=== PATIENT | male | born 1975 | race Hispanic/Latino ===

== ENCOUNTER 2021-12-15 20:52 | Emergency (ER) | payer OTHER ==
--- NOTE | 2021-12-16 01:56 | EDPHYS ---
Physician Documentation [facility] Name: Fabiano Omalley Age: 46 yrs Sex: Male : 1975 Arrival Date: 12/15/2021 Time: 21:04 Bed 14 Private MD: ED Physician Juan Qureshi HPI: 12/15 23:49 This 46 yrs old Male presents to ER via Wheelchair with complaints of mh7 Productive Cough, COVID+. 23:49 The patient or guardian reports cough, that is intermittent, described as mild, with mh7 productive sputum, that is white. Onset: The symptoms/episode began/occurred 7 day(s) ago. 23:49 Severity of symptoms: At their worst the symptoms were moderate, 443 day(s) ago, in the [facility] emergency department the symptoms have improved, moderately. 23:49 Modifying factors: The symptoms are alleviated by nothing, the symptoms are aggravated mh7 by nothing. Associated signs and symptoms: Pertinent positives: chest pain, with cough, Pertinent negatives: diarrhea, ear ache, fever, nausea, rhinorrhea, sore throat, vomiting. Mother states that patient tested positive for COVID 3 days ago. She is also tested positive for COVID.. 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 - Social history:: Smoking status: Patient denies any tobacco usage or history of. Patient/guardian denies using alcohol. ROS: 23:49 Constitutional: Negative for fever, chills, and weight loss, Eyes: Negative for injury, mh7 pain, redness, and discharge, ENT: Negative for injury, pain, and discharge, Neck: Negative for injury, pain, and swelling, Abdomen/GI: Negative for abdominal pain, nausea, vomiting, diarrhea, and constipation, Back: Negative for injury and pain, : Negative for injury, bleeding, discharge, and swelling, MS/Extremity: Negative for injury and deformity, Skin: Negative for injury, rash, and discoloration, Neuro: Negative for headache, weakness, numbness, tingling, and seizure, Psych: Negative for depression, anxiety, suicide ideation, homicidal ideation, and hallucinations, Allergy/Immunology: Negative for hives, rash, and allergies, Endocrine: Negative for neck swelling, polydipsia, polyuria, polyphagia, and marked weight changes, Hematologic/Lymphatic: Negative for swollen nodes, abnormal bleeding, and unusual bruising. Exam: 23:49 Constitutional: This is a well developed, well nourished patient who is awake, alert, mh7 and in no acute distress. Head/Face: Normocephalic, atraumatic. Eyes: Pupils equal round and reactive to light, extra-ocular motions intact. Lids and lashes normal. Conjunctiva and sclera are non-icteric and not injected. Cornea within normal limits. Periorbital areas with no swelling, redness, or edema. Neck: Trachea midline, no thyromegaly or masses palpated, and no cervical lymphadenopathy. Supple, full range of motion without nuchal rigidity, or vertebral point tenderness. No Meningismus. Chest/axilla: Normal chest wall appearance and motion. Nontender with no deformity. No lesions are appreciated. Cardiovascular: Regular rate and rhythm with a normal S1 and S2. No gallops, murmurs, or rubs. Normal PMI, no JVD. No pulse deficits. Respiratory: Lungs have equal breath sounds bilaterally, clear to auscultation and percussion. No rales, rhonchi or wheezes noted. No increased work of breathing, no retractions or nasal flaring. Abdomen/GI: Soft, non-tender, with normal bowel sounds. No distension or tympany. No guarding or rebound. No evidence of tenderness throughout. Back: No spinal tenderness. No costovertebral tenderness. Full range of motion. Skin: Warm, dry with normal turgor. Normal color with no rashes, no lesions, and no evidence of cellulitis. 23:49 Musculoskeletal/extremity: Exam is negative for acute changes, Wheelchair-bound due to cerebral palsy. 23:49 Neuro: Exam negative for acute changes. Vital Signs: 21:24 Pulse 83; Resp 18; Temp 98.8(TE); Pulse Ox 95% on R/A; Weight 54.43 kg; Height 5 ft. 6 ld1 in. (167.64 cm); Pain 0/10; 23:35 BP 98 / 68; Pulse 86; Resp 18; Pulse Ox 98% on R/A; mk 12/16 00:35 BP 117 / 81; Pulse 81; Resp 18; Pulse Ox 98% on R/A; mk 02:00 BP 117 / 82; Pulse 85; Resp 18; Temp 98.4; Pulse Ox 99% on R/A; mk 12/15 21:24 Body Mass Index 19.37 (54.43 kg, 167.64 cm) ld1 Cheryl Coma Score: 12/15 23:35 Eye Response: spontaneous(4). Verbal Response: oriented(5). Motor Response: obeys mk commands(6). Total: 15. 12/16 00:35 Eye Response: spontaneous(4). Verbal Response: oriented(5). Motor Response: obeys mk commands(6). Total: 15. 02:00 Eye Response: spontaneous(4). Verbal Response: oriented(5). Motor Response: obeys mk commands(6). Total: 15. MDM: 01:54 Differential Diagnosis: Bronchitis Asthma Exacerbation Viral Syndrome Pneumonia. Data [facility] reviewed: vital signs, nurses notes, radiologic studies, plain films. Data interpreted: Pulse oximetry: on room air is 98 %. Interpretation: normal. Counseling: I had a detailed discussion with the patient and/or guardian regarding: the historical points, exam findings, and any diagnostic results supporting the discharge/admit diagnosis, radiology results, the need for outpatient follow up, to return to the emergency department if symptoms worsen or persist or if there are any questions or concerns that arise at home. Response to treatment: the patient's symptoms have markedly improved after treatment. 01:56 Patient medically screened. [facility] 12/15 23:49 Order name: Chest Single View XRAY 7 Administered Medications: No medications were administered Disposition Summary: 12/16/21 01:56 Discharge Ordered Location: Home [facility] Problem: an ongoing problem [facility] Symptoms: have improved [facility] Condition: Stable [facility] Diagnosis - Coronavirus infection, unspecified [facility] Followup: [facility] - With: Private Physician - When: 1 - 2 days - Reason: Worsening of condition, Recheck today's complaints, Continuance of care, Re-evaluation by your physician Discharge Instructions: - Discharge Summary Sheet [facility] - COVID-19 [facility] - COVID-19 Frequently Asked Questions [facility] - 10 Things You Can Do to Manage Your COVID-19 Symptoms at Home - [place] [address] - COVID-19: Quarantine vs. Isolation - [place] [address] Forms: - Medication Reconciliation Form [facility] - Thank You Letter [facility] - Antibiotic Education [facility] - Prescription Opioid Use [facility] Prescriptions: - albuterol sulfate 90 mcg/actuation Inhalation HFA aerosol inhaler - inhale 1 puff by INHALATION route every 4-6 hours As needed; 1 Inhaler; 7 Refills: 0, Product Selection Permitted - Tessalon Perles 100 mg Oral Capsule - take 1 capsule by ORAL route every 8 hours As needed; 15 capsule; Refills: 0, 7 Product Selection Permitted Signatures: Dispatcher [employer] Juan Tucker MD MD [facility] Mayra Mathew RN RN ld1 Corrections: (The following items were deleted from the chart) 12/15 21:28 21:25 Home Meds: Miralax 17 gram/dose Oral powd once daily; 1 ld1 21:28 21:25 Home Meds: Vitamin D Oral; 1 ld1 21:28 21:25 PMHx: Mental challenged; [facility] ld1 23:53 23:49 Severity of symptoms: At their worst the symptoms were moderate, 3 day(s) ago, in [facility] the emergency department the symptoms [facility]
--- NOTE | 2021-12-16 01:56 | ER ---
Nurse's Notes [facility] Name: Fabiano Omalley Age: 46 yrs Sex: Male : 1975 Arrival Date: 12/15/2021 Time: 21:04 Bed 14 Private MD: Diagnosis: Coronavirus infection, unspecified Presentation: 12/15 21:24 Chief complaint: Patient states: COVID + - phlegm is causing choking. Coughing is ld1 causing chest to hurt. Coronavirus screen: Client presents with at least one sign or symptom that may indicate coronavirus-19. Standard/surgical mask placed on the client. Ebola Screen: No symptoms or risks identified at this time. Initial Sepsis Screen: Does the patient meet any 2 criteria? No. Patient's initial sepsis screen is negative. Does the patient have a suspected source of infection? No. Patient's initial sepsis screen is negative. Risk Assessment: Do you want to hurt yourself or someone else? Patient reports no desire to harm self or others. Onset of symptoms was December 15, 2021. 21:24 Method Of Arrival: Wheelchair ld1 21:24 Acuity: SEAN 4 ld1 Triage Assessment: 21:25 General: Appears in no apparent distress. comfortable, Behavior is calm, cooperative, ld1 appropriate for age. Pain: Denies pain. EENT: No signs and/or symptoms were reported regarding the EENT system. Neuro: Level of Consciousness is awake, alert, obeys commands, Oriented to person, place, time, situation, Appropriate for age. Respiratory: Reports cough that is Airway is patent Respiratory effort is even, unlabored, Onset: The symptoms/episode began/occurred gradually, the patient has mild shortness of breath. 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 - Social history:: Smoking status: Patient denies any tobacco usage or history of. Patient/guardian denies using alcohol. Screenin/15 02:34 Abuse screen: Denies threats or abuse. Nutritional screening: No deficits noted. mk Nutritional screening: No deficits noted. Nutritional screening: On bland/soft diet. Tuberculosis screening: No symptoms or risk factors identified. Fall Risk No fall in past 12 months (0 pts). No secondary diagnosis (0 pts). IV access (20 points). Ambulatory Aid- Crutches/Cane/Walker (15 pts). Gait- Impaired (20 pts.). Mental Status- Oriented to own ability (0 pts). Total Linn Fall Scale indicates High Risk Score (45 or more points). Fall prevention measures have been instituted. Side Rails Up X 2 Placed Close to Nursing Station Family Present and informed to notify staff if the need to leave the bedside. Assessment: 12/15 23:35 General: Appears slender, well groomed, Behavior is calm, cooperative. Pain: Denies mk pain. Neuro: Level of Consciousness is awake, alert, obeys commands, Oriented to person, place, time, situation, slight difficulty assessing d/t slurred speech but pt communicating with full understanding. Special Collections Librarian are weak bilaterally Moves all extremities. spasms of arms and legs . Speech is slurred, Facial symmetry appears normal, Pupils are PERRLA, Pupil Size: 3 bilaterally Intact. Cardiovascular: Heart tones S1 S2 Rhythm is sinus rhythm. Respiratory: Airway is patent Trachea midline Respiratory effort is even, unlabored, Respiratory pattern is regular, symmetrical, Breath sounds are clear Parent/caregiver reports the patient having shortness of breath since dx with covid 7-8 days [employer] cough that is non-productive, hacking, persistent. GI: Abdomen is flat, non-distended, Bowel sounds present X 4 quads. Abd is soft and non tender X 4 quads. : No signs and/or symptoms were reported regarding the genitourinary system. Derm: Skin is intact, is healthy with good turgor, Skin is dry, Skin temperature is warm. Musculoskeletal: Capillary refill < 3 seconds, fingers. toes. Range of motion: limited in all extremities. 12/16 00:30 Reassessment: No changes from previously documented assessment. Patient and/or family mk updated on plan of care and expected duration. Pain level reassessed. Patient is alert, oriented x 3, equal unlabored respirations, skin warm/dry/pink. 01:30 Reassessment: No changes from previously documented assessment. Patient and/or family mk updated on plan of care and expected duration. Pain level reassessed. Patient is alert, oriented x 3, equal unlabored respirations, skin warm/dry/pink. 02:15 Reassessment: No changes from previously documented assessment. Patient and/or family mk updated on plan of care and expected duration. Pain level reassessed. Patient is alert, oriented x 3, equal unlabored respirations, skin warm/dry/pink. Vital Signs: 12/15 21:24 Pulse 83; Resp 18; Temp 98.8(TE); Pulse Ox 95% on R/A; Weight 54.43 kg; Height 5 ft. 6 ld1 in. (167.64 cm); Pain 0/10; 23:35 BP 98 / 68; Pulse 86; Resp 18; Pulse Ox 98% on R/A; mk 12/16 00:35 BP 117 / 81; Pulse 81; Resp 18; Pulse Ox 98% on R/A; mk 02:00 BP 117 / 82; Pulse 85; Resp 18; Temp 98.4; Pulse Ox 99% on R/A; mk 12/15 21:24 Body Mass Index 19.37 (54.43 kg, 167.64 cm) ld1 Cheryl Coma Score: 12/15 23:35 Eye Response: spontaneous(4). Verbal Response: oriented(5). Motor Response: obeys commands(6). Total: 15. 12/16 00:35 Eye Response: spontaneous(4). Verbal Response: oriented(5). Motor Response: obeys mk commands(6). Total: 15. 02:00 Eye Response: spontaneous(4). Verbal Response: oriented(5). Motor Response: obeys mk commands(6). Total: 15. ED Course: 12/15 21:04 Patient arrived in ED. wm 21:25 Triage completed. ld1 21:25 Arm band placed on right wrist. ld1 23:35 Patient has correct armband on for positive identification. Allergy band placed. Fall mk risk band placed. Call light in reach. Side rails up X 1. remains in customized wheelcahir. Pulse ox on. NIBP on. 23:38 Juan uQreshi MD is Attending Physician. [facility] 23:48 Rody Lee, RN is Primary Nurse. 12/16 00:37 Chest Single View XRAY In Process Unspecified. EDMS 02:34 No provider procedures requiring assistance completed. Patient did not have IV access during this emergency room visit. Administered Medications: No medications were administered Outcome: 01:56 Discharge ordered by . [facility] 02:28 Patient left the ED. 02:34 Discharged to home via wheelchair, with family. 02:34 Condition: stable 02:34 Discharge instructions given to patient, family. Signatures: Dispatcher [employer] EDMS Juan Qureshi MD MD 7 Mayra Mathew RN RN [facility] Leena Banks Rody Lee RN RN joe Corrections: (The following items were deleted from the chart) 12/15 21:28 21:25 Home Meds: Miralax 17 gram/dose Oral powd once daily; [facility] 21 21:25 Home Meds: Vitamin D Oral; [facility] 21:25 PMHx: Mental challenged; [place] [address] 12/16 00:23 12/15 23:35 GCS: 15, [facility] 12/16 02:28 12/15 23:35 GCS: 12, [facility] 12/16 02: 00:35 GCS: 12, [facility]
[2021-12-16 02:39] VITALS: BP 117/82; TEMP 98.4; O2SAT 99
--- NOTE | 2021-12-17 22:34 | RAD REPORT ---
EXAM DESCRIPTION: RAD - Chest Single View - 12/16/2021 12:37 am CLINICAL HISTORY: Cough COMPARISON: None. TECHNIQUE: Chest 1 View AP FINDINGS: Trachea midline. Heart size and pulmonary vessels within normal limits. Minimal stranding right lower lung field opacity. No consolidation, mass, or significant pulmonary edema. No significant pleural effusion or pneumothorax. Bones unremarkable. IMPRESSION: Minimal right lower lung field subsegmental atelectasis or scar/fibrosis. Electronically signed by: Eber Mann MD 12/16/2021 12:50 AM LANDING SIGNAL OFFICER Due to temporary technical issues with the PACS/Fluency reporting system, reports are being signed by the in house radiologists without review as a courtesy to insure prompt reporting. The interpreting radiologist is fully responsible for the content of the report.
== END 2021-12-16 02:28 | disposition home or self-care (01) ==
LOC: ER 20:52
DX: U07.1 COVID-19 (principal); N18.9 Chronic kidney disease, unspecified; G80.9 Cerebral palsy, unspecified
CPT/HCPCS: 71045; 99284

== ENCOUNTER 2024-05-20 09:57 | Emergency (ER) | payer OTHER ==
--- NOTE | 2024-05-20 11:09 | RAD REPORT ---
EXAM DESCRIPTION: RAD - Chest Single View - 05/20/2024 11:01 am CLINICAL HISTORY: COUGH Chest pain. COMPARISON: <Comparisons> FINDINGS: Portable technique limits examination quality. The lungs are grossly clear. The heart is upper limit normal in size. No displaced fractures. IMPRESSION: No acute intrathoracic process suspected.
[2024-05-20 12:10] LABS: Absolute Eosinophils 0.2 K/uL (0-0.5); Absolute Lymphocytes (CBC) 0.5 K/uL (0.7-4.9); Absolute Monocytes 0.7 K/uL (0.1-1.3); Absolute Neutrophil 5.7 K/uL (1.8-8.0); Basophils % 0.2 % (0-1.3); Eosinophils % 2.6 % (0-4.4); Hemoglobin 13.7 g/dL (13.6-17.9); Lymphocytes % 7.1 % (15.3-44.8); MCH 28.8 pg (27.0-35.0); MCHC 32.7 g/dL (32.0-36.0); MPV 8.5 fL (7.6-11.3); Monocytes % 10.1 % (3.3-12.3); Platelets 209 thou/uL (152-406); RBC Red Blood Cell Count 4.77 M/uL (4.33-5.43); Red Cell Distribution Width 14.1 % (12.1-15.2)
[2024-05-20 12:29] LABS: Albumin 3.4 g/dL (3.4-5.0); Albumin/Globulin Ratio 0.9 (1.1-1.8); Anion Gap 6.1 mEq/L (5.0-15.0); Bilirubin Direct 0.2 mg/dL (0-0.2); Bilirubin Indirect, Calculated 0.5 mg/dL (0.2-0.8); Bilirubin Total 0.7 mg/dL (0.2-1.0); Globulin 3.7 g/dL (2.3-3.5); Potassium 4.1 mEq/L (3.5-5.1); Protein, Total 7.1 g/dL (6.4-8.2)
[2024-05-20] MEDS ORDERED: CEFTRIAXONE 1000 MG/VIAL ONE (13:16)
[2024-05-20] MEDS ORDERED: NA CHLORIDE 0.9% 100 ML ONE (13:17)
[2024-05-20 14:52] VITALS: BP 99/68; O2SAT 97
--- NOTE | 2024-05-20 15:08 | ER ---
Nurse's Notes [facility] Name: Fabiano Omalley Age: 48 yrs Sex: Male : 1975 Arrival Date: 05/20/2024 Time: 09:57 Bed 20 Private MD: Diagnosis: Clinical pneumonia Presentation: 05/20 10:23 Chief complaint: Parent and/or Guardian states: cough and congestion that began ss Saturday after returning from [place]. Was seen at urgent care on Saturday and tested negative for COVID, FLU and strep. Prescribed an antibiotic, but Aunt is concerned because he is coughing up phlegm. Coronavirus screen: Client denies travel out of the [place] in the last 14 days. Ebola Screen: Patient denies exposure to infectious person. Patient denies travel to an Ebola-affected area in the 21 days before illness onset. Initial Sepsis Screen: Does the patient meet any 2 criteria? No. Patient's initial sepsis screen is negative. Does the patient have a suspected source of infection? No. Patient's initial sepsis screen is negative. Risk Assessment: Do you want to hurt yourself or someone else? Patient reports no desire to harm self or others. Onset of symptoms was May 26, 2024. 10:23 Method Of Arrival: Ambulatory ss 10:23 Acuity: SEAN 3 ss Triage Assessment: 10:26 Pain: Denies pain. Neuro: Level of Consciousness is awake, alert, obeys commands. ss Respiratory: Airway is patent Respiratory effort is even, unlabored, Respiratory pattern is regular, symmetrical. 10:30 Respiratory: Reports shortness of breath cough that is Onset: The symptoms/episode bp began/occurred at an unknown time. the patient has mild shortness of breath. 10:30 General: Appears in no apparent distress. Behavior is AT BASELINE. EENT: No deficits bp noted. Cardiovascular: No deficits noted. GI: No signs and/or symptoms were reported involving the gastrointestinal system. : No signs and/or symptoms were reported regarding the genitourinary system. Historical: - Allergies: 10:26 No Known Allergies; ss - PMHx: 10:26 Cerebral Palsy; Chrones; kidney disease; ss - PSHx: 10:26 intestinal Surgery; ss - Immunization history:: Adult Immunizations up to date. - Infectious Disease History:: Denies. - Social history:: Smoking status: Patient denies any tobacco usage or history of. Screenin:01 [facility] ED Fall Risk Assessment (Adult) History of falling in the last 3 months, bp including since admission No falls in past 3 months (0 pts) Confusion or Disorientation Yes (5 pts) Intoxicated or Sedated No (0 pts) Impaired Gait Yes (1 pt) Mobility Assist Device Used No (0 pt) Altered Elimination No (0 pt) Score/Fall Risk Level 3 or more points = High Risk. Abuse screen: Denies threats or abuse. Denies injuries from another. Nutritional screening: No deficits noted. Tuberculosis screening: No symptoms or risk factors identified. Assessment: 10:30 General: Appears in no apparent distress. Behavior is cooperative, appropriate for age, bp anxious. Pain: Denies pain. Neuro: No deficits noted. Cardiovascular: Rhythm is sinus rhythm. Respiratory: Airway is patent Breath sounds are clear bilaterally. 13:00 Reassessment: No changes from previously documented assessment. bp 13:41 Reassessment: DC ON HOLD FOR AMBULANCE TRANSPORT. bp Vital Signs: 10:23 BP 111 / 73; Pulse 92; Resp 17; Pulse Ox 94% on R/A; Weight 49.9 kg; ss 13:00 BP 99 / 72; Pulse 93; Resp 20; Pulse Ox 94% ; bp 13:51 BP 99 / 68; Pulse 98; Resp 18; Pulse Ox 97% ; bp ED Course: 10:08 Patient arrived in ED. bd 10:08 Clotilde Butler MD is Attending Physician. sp3 10:26 Triage completed. ss 10:26 Arm band placed on right wrist. ss 11:02 XRAY Chest (1 view) In Process Unspecified. EDMS 11:20 Jay Yates, TRYA is Primary Nurse. bp 12:01 Patient has correct armband on for positive identification. bp 12:01 Inserted saline lock: 22 gauge in right antecubital area, using aseptic technique. bp Blood collected. 13:50 Provided Education on: N/A. bp 13:50 No provider procedures requiring assistance completed. IV discontinued, intact, bp bleeding controlled, No redness/swelling at site. Pressure dressing applied. Administered Medications: 13:15 Drug: Rocephin IV 1 grams IV at calculated rate once; Given slow IV push per pharmacy bp instructions Route: IV; Rate: calculated rate; Site: right antecubital; 13:40 Follow up: IV Status: Completed infusion; IV Intake: 100ml bp Medication: 10:30 VIS not applicable for this client. bp Intake: 13:40 IV: 100ml; Total: 100ml. bp Outcome: 13:03 Discharge ordered by MD. [email or web address] 13:50 Discharged to home via ambulance, with family, bp 13:50 Condition: stable 13:50 Discharge instructions given to family, Instructed on discharge instructions, follow up and referral plans. medication usage, Demonstrated understanding of instructions, follow-up care, medications, Prescriptions given X 1, 14:14 Patient left the ED. bp Signatures: Dispatcher [employer] EDMS Stephanie Read Shelby, RN RN Jay Barksdale RN RN Clotilde Morgan MD MD sp3
--- NOTE | 2024-05-20 15:08 | EDPHYS ---
Physician Documentation [facility] Name: Fabiano Omalley Age: 48 yrs Sex: Male : 1975 Arrival Date: 05/20/2024 Time: 09:57 Bed 20 Private MD: ED Physician Clotilde Butler HPI: 05/20 10:28 This 48 yrs old Male presents to ER via Ambulatory with complaints of sp3 Productive Cough, Nasal Congestion. 10:28 48-year-old male with history of cerebral palsy, Crohn's disease now presents to the ED sp3 with chief complaint cough and congestion for approximately 1 week. Patient's parent initially took patient to urgent care 2 days ago where they did swabs for influenza, COVID-19, strep which were all negative. 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 No fever over the last 24 hours. No other symptoms reported. ROS, history and physical somewhat limited secondary to cerebral palsy and most of the history is from the parent.. Historical: - Allergies: 10:26 No Known Allergies; ss - PMHx: 10:26 Cerebral Palsy; Chrones; kidney disease; ss - PSHx: 10:26 intestinal Surgery; ss - Immunization history:: Adult Immunizations up to date. - Infectious Disease History:: Denies. - Social history:: Smoking status: Patient denies any tobacco usage or history of. ROS: 10:29 Unable to obtain ROS due to Cerebral palsy, sp3 Exam: 10:29 Head/Face: Normocephalic, atraumatic. Eyes: Pupils equal round and reactive to light, sp3 extra-ocular motions intact. Lids and lashes normal. Conjunctiva and sclera are non-icteric and not injected. Cornea within normal limits. Periorbital areas with no swelling, redness, or edema. Chest/axilla: Normal chest wall appearance and motion. Nontender with no deformity. No lesions are appreciated. Cardiovascular: Regular rate and rhythm with a normal S1 and S2. No gallops, murmurs, or rubs. Normal PMI, no JVD. No pulse deficits. Respiratory: Lungs have equal breath sounds bilaterally, clear to auscultation and percussion. No rales, rhonchi or wheezes noted. No increased work of breathing, no retractions or nasal flaring. Abdomen/GI: Soft, non-tender, with normal bowel sounds. No distension or tympany. No guarding or rebound. No evidence of tenderness throughout. Vital Signs: 10:23 BP 111 / 73; Pulse 92; Resp 17; Pulse Ox 94% on R/A; Weight 49.9 kg; ss 13:00 BP 99 / 72; Pulse 93; Resp 20; Pulse Ox 94% ; bp 13:51 BP 99 / 68; Pulse 98; Resp 18; Pulse Ox 97% ; bp MDM: 10:08 Patient medically screened. sp3 10:29 Data reviewed: vital signs, nurses notes, EMS record, lab test result(s), radiologic sp3 studies. ED course: 48-year-old male with cough and congestion and distant fever. Differential diagnosis includes upper respiratory infection, viral illness, bronchitis, pneumonia, among others. I am not highly suspicious for sepsis or shock. Patient is in no acute distress and vital signs are normal. Patient is already on an antibiotic but we do not know which 1. Workup will include laboratory values, blood cultures and chest x-ray. Probable discharge home if workup is negative and we will place on Zithromax and Rocephin 1 dose in the ED and stop the other medication that patient is on unless it is Zithromax. The steps will be taken secondary to high risk of aspiration and patient's baseline deteriorated medical state. He is at high risk for infection.. 13:02 ED course: X-ray demonstrates no acute pneumonia radiologically however clinically we sp3 will go ahead and treat. Rocephin IV ordered and patient will be discharged on p.o. Zithromax.. 05/20 10:22 Order name: Basic Metabolic Panel; Complete Time: 12:43 sp3 05/20 10:22 Order name: CBC with Diff; Complete Time: 12:43 sp3 05/20 10:22 Order name: LFT's; Complete Time: 12:43 sp3 05/20 10:22 Order name: Blood Culture Adult (2) sp3 05/20 10:22 Order name: XRAY Chest (1 view); Complete Time: 11:27 sp3 05/20 10:22 Order name: IV Saline Lock; Complete Time: 12:01 sp3 05/20 10:22 Order name: Labs collected and sent; Complete Time: 12: sp3 05/20 10:22 Order name: O2 Sat Monitoring; Complete Time: 12:01 sp3 Administered Medications: 13:15 Drug: Rocephin IV 1 grams IV at calculated rate once; Given slow IV push per pharmacy bp instructions Route: IV; Rate: calculated rate; Site: right antecubital; 13:40 Follow up: IV Status: Completed infusion; IV Intake: 100ml bp Disposition Summary: 05/20/24 13:03 Discharge Ordered Notes: Location: Home sp3 Condition: Stable sp3 Diagnosis - Clinical pneumonia sp3 Followup: sp3 - With: Private Physician - When: Upon discharge from the Emergency Department - Reason: Continuance of care Discharge Instructions: - Discharge Summary Sheet sp3 - Community-Acquired Pneumonia, Adult sp3 Forms: - Medication Reconciliation Form sp3 - Antibiotic Education sp3 - Prescription Opioid Use sp3 - Patient Portal Instructions sp3 - Leadership Thank You Letter sp3 Prescriptions: - Zithromax Z-Pal 250 mg Oral Tablet - take 1 tablet ORAL route as directed for 5 days Day 1 - take two (2) tablets sp3 one time. Day 2, 3, 4 , 5 take one (1) tablet once daily.; 6 tablet; Refills: 0, Product Selection Permitted Signatures: Dispatcher [employer] mAy Joseph, RN Jay Raygoza RN RN Clotilde Morgan MD MD sp3 Corrections: (The following items were deleted from the chart) 10:23 10:23 Chest Single View+[email or web address] ordered. EDMS EDMS
== END 2024-05-20 14:14 | disposition home or self-care (01) ==
LOC: ER 09:57
DX: J18.9 Pneumonia, unspecified organism (principal)
CPT/HCPCS: 87040 ×2; 85025; 80048; 36415; 80076; 71045; J0696

== ENCOUNTER 2024-05-24 01:21 | Emergency (ER) | payer OTHER ==
[2024-05-24] MEDS ORDERED: GUAIFENESIN/DM 5 ML UCUP ONE (02:33)
[2024-05-24] MEDS ORDERED: ONDANSETRON 4 MG/2 ML VIAL ONE (02:33)
[2024-05-24] MEDS ORDERED: NA CHLORIDE 0.9% 1,000 ML ONE (02:34)
[2024-05-24 02:46] LABS: Absolute Basophils 0.1 K/uL (0-0.5); Absolute Eosinophils 0.3 K/uL (0-0.5); Absolute Lymphocytes (CBC) 0.6 K/uL (0.7-4.9); Absolute Monocytes 0.7 K/uL (0.1-1.3); Absolute Neutrophil 6.5 K/uL (1.8-8.0); Basophils % 0.7 % (0-1.3); Eosinophils % 3.1 % (0-4.4); Hematocrit 39.7 % (39.6-49.0); Hemoglobin 13.3 g/dL (13.6-17.9); Lymphocytes % 7.9 % (15.3-44.8); MCH 29.1 pg (27.0-35.0); MCHC 33.6 g/dL (32.0-36.0); MCV 86.6 fL (80-100); MPV 7.4 fL (7.6-11.3); Monocytes % 8.5 % (3.3-12.3); Neutrophils % 79.8 % (41.7-73.7); Nucleated Red Blood Cells % 0.4 % (0-0); Platelets 279 thou/uL (152-406); RBC Red Blood Cell Count 4.58 M/uL (4.33-5.43); Red Cell Distribution Width 13.5 % (12.1-15.2)
[2024-05-24 03:07] LABS: Anion Gap 8.8 mEq/L (5.0-15.0); Potassium 3.8 mEq/L (3.5-5.1)
--- NOTE | 2024-05-24 03:13 | EDPHYS ---
Physician Documentation [facility] Name: Fabiano Omalley Age: 48 yrs Sex: Male : 1975 Arrival Date: 05/24/2024 Time: 01:21 Bed 5 Private MD: ED Physician HPI: 05/24 02:07 This 48 yrs old Male presents to ER via Unassigned with complaints of cough, ec2 nausea. 02:09 Patient arrives today for evaluation of cough and cold symptoms. Patient was recently ec2 diagnosed with pneumonia, started on azithromycin, patient having cough as well as posttussive emesis. Patient with decreased p.o. intake and increased fatigue. Parent is concerned that he is dehydrated.. Historical: - Allergies: 02:31 No Known Allergies; cp4 - PMHx: 02:31 Cerebral Palsy; Chrones; kidney disease; cp4 - PSHx: 02:31 intestinal Surgery; cp4 - Immunization history:: Adult Immunizations up to date. - Infectious Disease History:: Denies. - Social history:: Smoking status: Patient denies any tobacco usage or history of. ROS: 02:07 Constitutional: as per hpi ec2 Exam: 02:07 Constitutional: GEN: NAD Head: atraumatic Eyes: EOMI Ears: External ears are ec2 normal. CV: regular rate LUNGS: Scattered rhonchi, no respiratory distress ABD: non-distended, soft, nontender, no guarding, no rigidity SKIN: no evidence of rashes MSK: no evidence of trauma NEURO: moves all extremities equally Vital Signs: 02:29 BP 131 / 82; Pulse 90; Resp 16; Temp 98.9; Pulse Ox 96% ; Pain 0/10; cp4 02:40 BP 111 / 75; Pulse 102; Resp 18 S; Pulse Ox 96% on R/A; ha1 03:00 BP 112 / 84; Pulse 93; Resp 16 S; Pulse Ox 96% on R/A; ha1 03:10 BP 112 / 84; Pulse 89; Pulse Ox 94% ; ec2 03:30 BP 109 / 78; Pulse 95; Resp 17 S; Pulse Ox 97% on R/A; ha1 04:41 BP 104 / 71; Pulse 95; Resp 17 S; Temp 98.2(T); Pulse Ox 97% on R/A; ha1 02:29 Pain Scale: Adult cp4 MDM: 01:37 Patient medically screened. ec2 02:07 Data reviewed: vital signs. ED course: Patient arrives today for evaluation of cough ec2 and cold symptoms. Examination remarkable for nontoxic and which with reassuring hemodynamics. Patient initially placed on oxygen by EMS, patient is saturating comfortably on room air with saturations in the mid to upper 90s. Will obtain lab work, chest x-ray, give the patient Zofran and crystalloid and antitussive. Differential diagnosis includes patient known pneumonia, viral infection, dehydration, electrolyte disturbances. . 03:07 ED course: Chest x-ray shows no acute intrathoracic process. CBC without leukocytosis. .ec2 03:10 ED course: On reassessment patient is well-appearing and in no acute distress. Will ec2 discharge home, prescribed the patient antitussive medication and instructed the family to continue with the azithromycin, will also prescribe antiemetic. . 05/24 01:38 Order name: Basic Metabolic Panel; Complete Time: 03:09 ec2 05/24 01:38 Order name: CBC with Diff; Complete Time: 03:07 ec2 05/24 01:38 Order name: XRAY Chest (1 view) ec2 05/24 01:38 Order name: Cardiac monitoring; Complete Time: 02:31 ec2 05/24 01:38 Order name: IV Saline Lock; Complete Time: 02:31 ec2 05/24 01:38 Order name: Labs collected and sent; Complete Time: 02:32 ec2 05/24 01:38 Order name: O2 Per Protocol; Complete Time: 02:32 ec2 05/24 01:38 Order name: O2 Sat Monitoring; Complete Time: 02:32 ec2 Administered Medications: 02:39 Drug: Robitussin Pediatric PO Liquid 30 mg PO once Route: PO; ha1 03:30 Follow up: Response: No adverse reaction; Marked relief of symptoms ha1 02:40 Drug: NS 0.9% IV 1000 ml IV at 1 bolus Per protocol; 1000 mL bolus Route: IV; Rate: 1 ha1 bolus; Site: right wrist; 04:00 Follow up: Response: No adverse reaction; IV Status: Completed infusion; IV Intake: ha1 1000ml 02:40 Drug: Ondansetron IVP 4 mg IVP once; over 2 minutes Route: IVP; Site: right wrist; ha1 03:00 Follow up: Response: No adverse reaction; Marked relief of symptoms ha1 Disposition Summary: 05/24/24 03:12 Discharge Ordered Notes: Location: Home ec2 Condition: Stable ec2 Diagnosis - Cough ec2 - Nausea ec2 Followup: ec2 - With: Private Physician - When: - Reason: Re-evaluation by your physician Discharge Instructions: - Discharge Summary Sheet ec2 - Cough, Adult ec2 Forms: - Medication Reconciliation Form ec2 - Antibiotic Education ec2 - Prescription Opioid Use ec2 - Patient Portal Instructions ec2 - Leadership Thank You Letter ec2 Prescriptions: - codeine-guaifenesin 10-200 mg/5 mL Oral liquid - take 10 milliliter ORAL route every 4 to 6 hours as needed for cough; 100 ec2 milliliter; Refills: 0, Product Selection Permitted - ondansetron 4 mg Oral Tablet,disintegrating - take 1 tablet ORAL route 3 times per day; 15 tablet; Refills: 0, Product ec2 Selection Permitted Signatures: Dispatcher [employer] Kaia Tsang RN RN 1 Jovany García MD MD ec2 Concha Johns cp4
--- NOTE | 2024-05-24 03:13 | ER ---
Nurse's Notes [facility] Name: Fabiano Omalley Age: 48 yrs Sex: Male : 1975 Arrival Date: 05/24/2024 Time: :21 Bed 5 Private MD: Diagnosis: Cough;Nausea Presentation: 05/24 02:29 Chief complaint: EMS states: nausea and vomiting when EMS arrived. Upon arrival to ED cp4 reports fatigue and not feeling well. Was diagnosed with pneumonia on Saturday. Coronavirus screen: Client denies travel out of the [place] in the last 14 days. At this time, the client does not indicate any symptoms associated with coronavirus-19. Ebola Screen: Patient negative for fever greater than or equal to 101.5 degrees Fahrenheit, and additional compatible Ebola Virus Disease symptoms Patient denies exposure to infectious person. Patient denies travel to an Ebola-affected area in the 21 days before illness onset. No symptoms or risks identified at this time. Initial Sepsis Screen: Does the patient meet any 2 criteria? No. Patient's initial sepsis screen is negative. Does the patient have a suspected source of infection? No. Patient's initial sepsis screen is negative. Risk Assessment: Do you want to hurt yourself or someone else? Patient reports no desire to harm self or others. Onset of symptoms was May 20, 2024. 02:29 Method Of Arrival: EMS: [place] [id number] 02:29 Acuity: SEAN 3 cp4 Triage Assessment: 02:31 General: Appears uncomfortable, Behavior is calm, cooperative, appropriate for age. cp4 Pain: Denies pain. Respiratory: Breath sounds are clear bilaterally. Historical: - Allergies: 02:31 No Known Allergies; cp4 - PMHx: 02:31 Cerebral Palsy; Chrones; kidney disease; cp4 - PSHx: 02:31 intestinal Surgery; cp4 - Immunization history:: Adult Immunizations up to date. - Infectious Disease History:: Denies. - Social history:: Smoking status: Patient denies any tobacco usage or history of. Screenin:32 [facility] ED Fall Risk Assessment (Adult) History of falling in the last 3 months, cp4 including since admission No falls in past 3 months (0 pts) Confusion or Disorientation No (0 pts) Intoxicated or Sedated No (0 pts) Impaired Gait No (0 pts) Mobility Assist Device Used Yes (1 pt) Altered Elimination No (0 pt) Score/Fall Risk Level 0 - 2 = Low Risk Oriented to surroundings, Maintained a safe environment, Assessed \T\ reinforced patient's understanding of fall precautions, Hourly rounding (assess needs \T\ fall precautionary measures) done. Abuse screen: Denies threats or abuse. Nutritional screening: No deficits noted. Tuberculosis screening: No symptoms or risk factors identified. Assessment: 02:32 Reassessment: No changes from previously documented assessment. cp4 02:40 Reassessment: Patient and/or family updated on plan of care and expected duration. Pain ha1 level reassessed. 03:42 Reassessment: awaiting on EMS to transport pt. back home. ha1 03:42 Reassessment: Patient states feeling better. Patient states symptoms have improved. ha1 04:20 Reassessment: Patient and/or family updated on plan of care and expected duration. Pain ha1 level reassessed. awaiting on transportation EMS. Vital Signs: 02:29 BP 131 / 82; Pulse 90; Resp 16; Temp 98.9; Pulse Ox 96% ; Pain 0/10; cp4 02:40 BP 111 / 75; Pulse 102; Resp 18 S; Pulse Ox 96% on R/A; ha1 03:00 BP 112 / 84; Pulse 93; Resp 16 S; Pulse Ox 96% on R/A; ha1 03:10 BP 112 / 84; Pulse 89; Pulse Ox 94% ; ec2 03:30 BP 109 / 78; Pulse 95; Resp 17 S; Pulse Ox 97% on R/A; ha1 04:41 BP 104 / 71; Pulse 95; Resp 17 S; Temp 98.2(T); Pulse Ox 97% on R/A; ha1 02:29 Pain Scale: Adult cp4 ED Course: 01:29 Patient arrived in ED. ec2 01:37 Jovany García MD is Attending Physician. ec2 02:05 XRAY Chest (1 view) In Process Unspecified. EDMS 02:29 Concha Johns is Primary Nurse. cp4 02:31 Triage completed. cp4 02:31 Arm band placed on right wrist. Patient placed in an exam room, on a stretcher. cp4 02:32 Bed in low position. Call light in reach. Side rails up X2. cp4 02:35 Inserted saline lock: 22 gauge in right wrist, using aseptic technique. Blood collected.oe 04:40 Provided Education on: medication administration . ha1 04:40 No provider procedures requiring assistance completed. IV discontinued, intact, ha1 bleeding controlled, No redness/swelling at site. Pressure dressing applied. Administered Medications: 02:39 Drug: Robitussin Pediatric PO Liquid 30 mg PO once Route: PO; ha1 03:30 Follow up: Response: No adverse reaction; Marked relief of symptoms ha1 02:40 Drug: NS 0.9% IV 1000 ml IV at 1 bolus Per protocol; 1000 mL bolus Route: IV; Rate: 1 ha1 bolus; Site: right wrist; 04:00 Follow up: Response: No adverse reaction; IV Status: Completed infusion; IV Intake: ha1 1000ml 02:40 Drug: Ondansetron IVP 4 mg IVP once; over 2 minutes Route: IVP; Site: right wrist; ha1 03:00 Follow up: Response: No adverse reaction; Marked relief of symptoms ha1 Medication: 02:32 VIS not applicable for this client. cp4 Intake: 04:00 IV: 1000ml; Total: 1000ml. ha1 Outcome: 03:12 Discharge ordered by . ec2 04:40 Discharged to home via ambulance, with family, ha1 04:40 Condition: stable 04:40 Discharge instructions given to patient, family, Instructed on discharge instructions, follow up and referral plans. medication usage, Demonstrated understanding of instructions, follow-up care, medications, Prescriptions given X 2, 04:44 Patient left the ED. ha1 Signatures: Dispatcher [employer] EDOK Lux Salamanca Heidy, RN RN ha1 Jovany García MD MD ec2 Concha Johns cp4
[2024-05-24 05:58] VITALS: BP 104/71
[2024-05-24 05:59] VITALS: TEMP 98.2; O2SAT 97
--- NOTE | 2024-05-25 21:52 | RAD REPORT ---
EXAM DESCRIPTION: RAD - Chest Single View - 05/24/2024 2:03 am CLINICAL HISTORY: 48 years, Male, COUGH COMPARISON: 05/20/2024 FINDINGS: 1 views of the chest was obtained. Prior films were compared. Images are compromised due to suboptimal positioning and right upper extremity within the field of imaging. Mediastinum: Grossly the cardiac mediastinal silhouette demonstrate to be within normal limits Lungs: No areas of consolidations or masses are identified. Heart: The heart is normal in size. Thoracic aorta: The thoracic aorta demonstrate to be normal. Pulmonary vasculature: The pulmonary vasculature is normal in distribution. Pleura: The costophrenic angles demonstrate to be sharp. Osseous structures: The bony structures demonstrate to be within normal limits. Other: None. IMPRESSION: No acute cardiopulmonary disease identified. Electronically signed by: Nitish Ordoñez MD 05/24/2024 02:53 AM CDT RP Due to temporary technical issues with the PACS/Fluency reporting system, reports are being signed by the in house radiologists without review as a courtesy to insure prompt reporting. The interpreting radiologist is fully responsible for the content of the report.
== END 2024-05-24 04:44 | disposition home or self-care (01) ==
LOC: ER 01:21
DX: R05.9 Cough, unspecified (principal); R11.0 Nausea; G80.9 Cerebral palsy, unspecified
CPT/HCPCS: 85025; 80048; 36415; 71045; J2405; J7030; 96361; 96374; 99284

== ENCOUNTER 2024-05-30 10:38 | Inpatient (IN) | payer OTHER ==
[2024-05-30] MEDS ORDERED: ONDANSETRON 4 MG/2 ML VIAL ONE (11:48)
[2024-05-30] MEDS ORDERED: NA CHLORIDE 0.9% 1,000 ML ONE (11:48)
[2024-05-30 12:10] LABS: Absolute Eosinophils 0.1 K/uL (0-0.5); Absolute Lymphocytes (CBC) 0.7 K/uL (0.7-4.9); Absolute Monocytes 0.6 K/uL (0.1-1.3); Absolute Neutrophil 6.6 K/uL (1.8-8.0); Basophils % 0.3 % (0-1.3); Eosinophils % 1.1 % (0-4.4); Hematocrit 44.9 % (39.6-49.0); Hemoglobin 14.8 g/dL (13.6-17.9); Lymphocytes % 9.1 % (15.3-44.8); MCH 29.1 pg (27.0-35.0); MCV 88.1 fL (80-100); MPV 7.7 fL (7.6-11.3); Neutrophils % 82.5 % (41.7-73.7); Nucleated Red Blood Cells % 0.1 % (0-0); Platelets 399 thou/uL (152-406); Red Cell Distribution Width 14.1 % (12.1-15.2)
[2024-05-30 12:15] LABS: PT Prothrombin Time 11.6 SECONDS (9.4-12.5); PTT, Activated Partial Thromb 34.3 SECONDS (24.3-36.9); Protime INR 1.06
[2024-05-30 12:22] LABS: Albumin 3.5 g/dL (3.4-5.0); Albumin/Globulin Ratio 0.9 (1.1-1.8); Anion Gap 8.9 mEq/L (5.0-15.0); Bilirubin Total 0.7 mg/dL (0.2-1.0); Globulin 3.9 g/dL (2.3-3.5); Potassium 3.9 mEq/L (3.5-5.1); Protein, Total 7.4 g/dL (6.4-8.2)
--- NOTE | 2024-05-30 12:43 | RAD REPORT ---
EX[facility] DESCRIPTION[facility] 12:10 pm CLINICAL HISTORY: COUGH COMPARISON: Chest Single View dated 05/24/2024; Chest Single View dated 05/20/2024; Chest Single View dated 12/16/2021 TECHNIQUE: Portable AP view of the chest. FINDINGS: The lungs are clear. No pneumothorax or effusion. The cardiomediastinal contours are unre markable. IMPRESSION: No acute cardiopulmonary process.
--- NOTE | 2024-05-30 13:10 | RAD REPORT ---
EXAM DESCRIPTION: CT - Abdomen Pelvis W Contrast - 05/30/2024 12:58 pm CLINICAL HISTORY: vomiting, abd pain COMPARISON: No comparisons TECHNIQUE: Thin cut axial CT imaging of the abdomen and pelvis was performed following intravenous a dministration of iodinated contrast. Multiplanar reformats were generated and reviewed. All CT scans are performed using dose optimization technique as appropriate and may include automated exposure control or mA/KV adjustment according to patient size. FINDINGS: Breathing motion artifact at the level of the upper abdomen somewhat limits evaluation. Trace layering right pleural effusion. The liver, spleen, and pancreas show no suspicious findings. Gallbladder and biliary tree are also wi thout suspicious finding. Symmetric renal function is seen with no hydronephrosis or suspicious renal mass. Multiple left renal cysts, largest at the interpolar region measuring 2.9 cm. No dilated bowel loops or bowel wall thickening. Large stool burden especially along the transverse c olon and in the rectal bulb. No free air, free fluid or inflammatory stranding. No hernia, mass or bu lky lymphadenopathy. The urinary bladder is without significant finding. No suspicious bony findings. IMPRESSION: No acute intra-abdominal process. Trace layering right pleural effusion. Large stool burden as above.
--- NOTE | 2024-05-30 13:56 | ER ---
Nurse's Notes [facility] Name: Fabiano Omalley Age: 48 yrs Sex: Male : 1975 Arrival Date: 05/30/2024 Time: 10:38 Bed 20 Private MD: Diagnosis: Intractable vomiting;Lactic acidosis;Dehydration;Constipation Presentation: 05/30 11:22 Coronavirus screen: At this time, the client does not indicate any symptoms associated bp with coronavirus-19. Ebola Screen: No symptoms or risks identified at this time. Initial Sepsis Screen: Does the patient meet any 2 criteria? No. Patient's initial sepsis screen is negative. Does the patient have a suspected source of infection? No. Patient's initial sepsis screen is negative. Risk Assessment: Do you want to hurt yourself or someone else? Patient reports no desire to harm self or others. 11:22 Method Of Arrival: Wheelchair bp 11:22 Acuity: SEAN 3 bp 11:22 Chief complaint: N/V and hiccups x 2 weeks. 11:29 Onset of symptoms was May 2024. Triage Assessment: 11:22 General: Appears in no apparent distress. Behavior is AT BASELINE. Pain: Unable to use bp pain scale. Does not appear to understand pain scale. Neuro: AT BASELINE. GI: Reports nausea, vomiting. Historical: - Allergies: 11:22 No Known Allergies; bp - PMHx: 11:22 Cerebral Palsy; Chrones; kidney disease; bp - PSHx: 11:22 intestinal Surgery; bp - Immunization history:: Adult Immunizations up to date. - Infectious Disease History:: Denies. - Social history:: Smoking status: unknown. - Family history:: not pertinent. - Hospitalizations: : No recent hospitalization is reported. Screenin:24 [facility] ED Fall Risk Assessment (Adult) History of falling in the last 3 months, bp including since admission No falls in past 3 months (0 pts) Confusion or Disorientation Yes (5 pts) Intoxicated or Sedated No (0 pts) Impaired Gait Yes (1 pt) Mobility Assist Device Used Yes (1 pt) Altered Elimination No (0 pt) Score/Fall Risk Level 3 or more points = High Risk. Abuse screen: Denies threats or abuse. Denies injuries from another. Nutritional screening: No deficits noted. Tuberculosis screening: No symptoms or risk factors identified. Assessment: 12:22 General: Appears comfortable, slender, well groomed, Behavior is calm, cooperative, me1 appropriate for age, Reports n/v, hiccups x 2 weeks. Pain: Denies pain. Neuro: Level of Consciousness is awake, alert, obeys commands, Oriented to person, place, time, situation, Appropriate for age. Cardiovascular: Patient's skin is warm and dry. Respiratory: Airway is patent Respiratory effort is even, unlabored, Respiratory pattern is regular, symmetrical. GI: Reports nausea, vomiting, since 2 weeks ago. Vital Signs: 11:22 BP 133 / 90; Pulse 82; Resp 18; Temp 97.3(TE); Pulse Ox 97% on R/A; hb 13:00 BP 114 / 82; Pulse 80; Resp 15; Pulse Ox 98% on R/A; me1 14:00 BP 127 / 80; Pulse 108; Resp 14; Pulse Ox 99% on R/A; me1 15:00 BP 126 / 69; Pulse 92; Resp 15; Pulse Ox 97% ; me1 ED Course: 10:40 Patient arrived in ED. ts1 10:45 Rajeev Hutson MD is Attending Physician. rn 11:22 Jay Yates, TRAY is Primary Nurse. bp 11:22 Arm band placed on. bp 11:23 Triage completed. bp 11:24 Patient has correct armband on for positive identification. bp 11:55 Initial lab(s) drawn, by me, sent to lab. First set of blood cultures drawn. cm10 11:59 CBC with Diff Sent. cm10 11:59 CMP Sent. cm10 11:59 Lactate w/ 2H reflex if indic. Sent. cm10 11:59 Protime (+inr) Sent. cm10 11:59 Ptt, Activated Sent. cm10 11:59 Inserted saline lock: 22 gauge in right antecubital area, using aseptic technique. cm10 Blood collected. 12:12 Chest Single View XRAY In Process Unspecified. EDMS 12:19 Second set of blood cultures drawn by me. me1 12:22 Provided Education on: POC. Verbalized understanding. . Client placed on continuous me1 cardiac and pulse oximetry monitoring. NIBP monitoring applied. pick pulling machine operator on. Pulse ox on. NIBP on. 12:22 No provider procedures requiring assistance completed. me1 12:42 EKG done, by ED staff, reviewed by Rajeev Hutson MD. me1 12:59 CT Abd/Pelvis - IV Contrast Only In Process Unspecified. EDMS 13:54 Heladio Ashraf is Hospitalizing Provider. rn 15:22 Patient admitted, IV remains in place. me1 Administered Medications: 11:59 Drug: NS 0.9% IV 1000 ml IV at 1000 ml once Route: IV; Rate: 1000 ml; Site: right cm10 antecubital; 15:19 Follow up: Response: No adverse reaction; IV Status: Completed infusion; IV Intake: me1 1000ml 11:59 Drug: Ondansetron IVP 4 mg IVP once; over 2 minutes Route: IVP; Site: right antecubital;cm10 13:32 Follow up: Response: No adverse reaction; Nausea is decreased me1 14:47 CANCELLED (Duplicate Order): ns 0.9% 500 ml IV at bolus once rn 15:13 Drug: Rocephin IV 1 grams IV at calculated rate once; Given slow IV push per pharmacy me1 instructions Route: IV; Rate: calculated rate; Site: right antecubital; 15:19 Follow up: Response: No adverse reaction; IV Status: Completed infusion me1 Medication: 12:22 VIS not applicable for this client. me1 Intake: 15:19 IV: 1000ml; Total: 1000ml. me1 Outcome: 13:56 Decision to Hospitalize by Provider. rn 15:21 Admitted to Med/surg accompanied by tech, via wheelchair, room 215, with chart, Report me1 called to faxed report. Receipt confirmed with Bina. 15:21 Condition: stable 15:21 Instructed on the need for admit, 16:12 Patient left the ED. me1 Signatures: Dispatcher [employer] EDMS Rajeev Hutson MD MD rn Baxter, Heather, RN RN hb Peltier, Brian, RN RN bp Lina Perez PAS PAS ts1 Lucero Cantu RN RN cm10 Gena Rooney RN RN me1 Corrections: (The following items were deleted from the chart) 12:21 11:22 Coronavirus screen: At this time, the client does not indicate any symptoms me1 associated with coronavirus-19. bp 15:21 14:00 BP 126 / 69; Pulse 92bpm; Resp 15bpm; Pulse Ox 97%; me1 me1
--- NOTE | 2024-05-30 13:56 | EDPHYS ---
Physician Documentation [facility] Name: Fabiano Omalley Age: 48 yrs Sex: Male : 1975 Arrival Date: 05/30/2024 Time: 10:38 Bed 20 Private MD: ED Physician Rajeev Hutson HPI: 05/30 12:09 This 48 yrs old Male presents to ER via Wheelchair with complaints of rn Nausea/Vomiting. 12:09 The patient presents to the emergency department with nausea, vomiting. Onset: The rn symptoms/episode began/occurred 2 week(s) ago. Possible causes: unknown. The symptoms are aggravated by food , The symptoms are alleviated by nothing. Severity of symptoms: At their worst the symptoms were moderate in the emergency department the symptoms are unchanged. The patient has experienced similar episodes in the past. Mother reports sick for the last 2 weeks, this is third visit in 2 weeks, has cerebral palsy. Reports vomiting and not tolerating p.o. for the last few days, nausea medication not helping. Also reports cough and mother feels like he is having difficulty breathing. No hemoptysis. No hematemesis.. Historical: - Allergies: 11:22 No Known Allergies; bp - PMHx: 11:22 Cerebral Palsy; Chrones; kidney disease; bp - PSHx: 11:22 intestinal Surgery; bp - Immunization history:: Adult Immunizations up to date. - Infectious Disease History:: Denies. - Social history:: Smoking status: unknown. - Family history:: not pertinent. - Hospitalizations: : No recent hospitalization is reported. ROS: 12:09 Constitutional: Negative for fever, chills, and weight loss, Cardiovascular: Negative rn for chest pain, palpitations, and edema, Respiratory: Positive for cough Abdomen/GI: Positive for nausea and vomiting MS/Extremity: Negative for injury and deformity, Skin: Negative for injury, rash, and discoloration, Neuro: Positive for generalized weakness Exam: 12:09 Constitutional: This is a well developed, well nourished patient who is awake, alert, rn and in no acute distress. Cardiovascular: Regular rate and rhythm. No pulse deficits. Respiratory: No increased work of breathing, no retractions or nasal flaring. Abdomen/GI: Soft, non-tender MS/ Extremity: Pulses equal, no cyanosis Neuro: Awake and alert, GCS 15 13:39 ECG was reviewed by the Attending Physician. rn Vital Signs: 11:22 BP 133 / 90; Pulse 82; Resp 18; Temp 97.3(TE); Pulse Ox 97% on R/A; hb 13:00 BP 114 / 82; Pulse 80; Resp 15; Pulse Ox 98% on R/A; me1 14:00 BP 127 / 80; Pulse 108; Resp 14; Pulse Ox 99% on R/A; me1 15:00 BP 126 / 69; Pulse 92; Resp 15; Pulse Ox 97% ; me1 MDM: 10:45 Patient medically screened. rn 13:52 Differential diagnosis: Nonspecific abd pain, cholecystitis, pancreatitis, rn appendicitis, diverticulitis, viral gastroenteritis, gastroenteritis, Colitis, fecal impaction, dehydration, viral illness. Data reviewed: vital signs, nurses notes, lab test result(s), radiologic studies, CT scan, and as a result, I will admit patient. Consideration of Admission/Observation Patient was admitted/placed on observation. Escalation of care including admission/observation considered. Care significantly affected by the following chronic conditions: Cerebral palsy. Counseling: I had a detailed discussion with the patient and/or guardian regarding the historical points, exam findings, and any diagnostic results supporting the discharge/admit diagnosis, lab results, radiology results, the need for further work-up and treatment in the hospital. ED course: Patient without acute findings on CT other than fecal retention, is in transverse colon as well as rectum. No evidence of impaction. Likely secondary to to his dehydration status. Elevated lactic acid but more likely from volume depletion and not infection.. 05/30 11:23 Order name: Blood Culture Adult (2) rn 05/30 11:23 Order name: CBC with Diff; Complete Time: 12:34 rn 05/30 11:23 Order name: CMP; Complete Time: 12:34 rn 05/30 11:23 Order name: Lactate w/ 2H reflex if indic.; Complete Time: 12:34 rn 05/30 11:23 Order name: Protime (+inr); Complete Time: 12:34 rn 05/30 11:23 Order name: Ptt, Activated; Complete Time: 12:34 rn 05/30 14:27 Order name: Ghost Lactate-NO COLLECT Timer; Complete Time: 14: EDCO 05/30 15:33 Order name: Lactate Sepsis 2 HR Follow-up; Complete Time: 15:39 EDMS 05/30 11:23 Order name: Chest Single View XRAY; Complete Time: 13:15 rn 05/30 11:23 Order name: CT Abd/Pelvis - IV Contrast Only; Complete Time: 13:15 rn 05/30 11:23 Order name: EKG; Complete Time: 11:24 rn 05/30 11:23 Order name: Accucheck; Complete Time: 13:12 rn 05/30 11:23 Order name: Cardiac monitoring; Complete Time: 12:38 rn 05/30 11:23 Order name: EKG - Nurse/Tech; Complete Time: 12:38 rn 05/30 11:23 Order name: IV Saline Lock - Large Bore; Complete Time: 59 rn 05/30 11:23 Order name: Labs collected and sent; Complete Time: :59 rn 05/30 11:23 Order name: O2 Per Protocol; Complete Time: : rn 05/30 11:23 Order name: O2 Sat Monitoring; Complete Time: rn 05/30 11:23 Order name: Vital Signs; Complete Time: rn 05/30 14:46 Order name: IV Saline Lock; Complete Time: 15:02 rn 05/30 14:46 Order name: NPO; Complete Time: 15:02 rn EC:39 Rate is 84 beats/min. Rhythm is regular. QRS [place] is Normal. MN interval is normal. QRS rn interval is normal. QT interval is normal. No Q waves. T waves are Normal. No ST changes noted. Clinical impression: Normal ECG. Interpreted by me. Reviewed by me. Administered Medications: 11:59 Drug: NS 0.9% IV 1000 ml IV at 1000 ml once Route: IV; Rate: 1000 ml; Site: right cm10 antecubital; 15:19 Follow up: Response: No adverse reaction; IV Status: Completed infusion; IV Intake: me1 1000ml 11:59 Drug: Ondansetron IVP 4 mg IVP once; over 2 minutes Route: IVP; Site: right antecubital;cm10 13:32 Follow up: Response: No adverse reaction; Nausea is decreased me1 14:47 CANCELLED (Duplicate Order): ns 0.9% 500 ml IV at bolus once rn 15:13 Drug: Rocephin IV 1 grams IV at calculated rate once; Given slow IV push per pharmacy me1 instructions Route: IV; Rate: calculated rate; Site: right antecubital; 15:19 Follow up: Response: No adverse reaction; IV Status: Completed infusion me1 Disposition Summary: 05/30/24 13:56 Hospitalization Ordered Notes: Hospitalization Status: Observation rn Provider: Heladio Ashraf rn Location: Telemetry/MedSurg (observation) rn Condition: Stable rn Problem: new rn Symptoms: have improved rn Bed/Room Type: Standard rn Room Assignment: 215(05/30/24 14:59) eb Diagnosis - Intractable vomiting rn - Lactic acidosis rn - Dehydration rn - Constipation rn Forms: - Medication Reconciliation Form rn - SBAR form rn - Leadership Thank You Letter rn Signatures: Dispatcher [employer] EDMS Rajeev Hutson MD MD rn Peltier, Brian RN RN Oma Hyman Clarissa, RN RN cm10 Gena Rooney RN RN me1 Corrections: (The following items were deleted from the chart) 11:24 11:24 BLOOD CULTURE*+BA.LAB.BRZ ordered. EDMS EDMS 11:24 11:24 CBC+H.LAB.BRZ ordered. EDMS EDMS 11:24 11:24 COMPREHENSIVE METABOLIC PANEL+C.LAB.BRZ ordered. EDMS EDMS 11:24 11:24 LACTATE+C.LAB.BRZ ordered. EDMS EDMS 11:24 11:24 PROTIME (+INR)+COAG.LAB.BRZ ordered. EDMS EDMS 11:24 11:24 PTT, ACTIVATED+COAG.LAB.BRZ ordered. EDMS EDMS 14:47 14:46 NS 0.9% IV 500 ml IV at bolus once ordered. rn rn 14:47 14:47 Head Brain Wo Cont+CT.RAD.BRZ ordered. EDMS EDMS 14:52 14:47 BASIC METABOLIC PANEL+C.LAB.BRZ ordered. EDMS EDMS 14:52 14:47 HEPATIC FUNCTION+C.LAB.BRZ ordered. EDMS EDMS 14:52 14:47 MAGNESIUM+C.LAB.BRZ ordered. EDMS EDMS 14:52 14:47 Troponin High Sensitivity+C.LAB.BRZ ordered. EDMS EDMS 14:59 13:56 rn eb
--- NOTE | 2024-05-30 15:04 | P.HP ---
Certification for Inpatient Patient admitted to: Observation With expected LOS: <2 Midnights Patient will require the following post-hospital care: None Practitioner: I am a practitioner with admitting privileges, knowledge of patient current condition, hospital course, and medical plan of care. Services: Services provided to patient in accordance with Admission requirements found in Title 42 Section 412.3 of the Code of Federal Regulations Patient History Date of Service: 05/30/24 Reason for admission: Intractable vomiting History of Present Illness: 48-year-old male with history of cerebral palsy, Crohn's, CKD presents emergency department with chief complaint of nausea/vomiting. His precipitator/family bedside report that he returned from a camping about 10 days ago and was ill when he came home with cough, vomiting/diarrhea. It was initially deemed to be a viral syndrome but he was treated with antibiotics and has not had much improvement. He has been to multiple healthcare facilities at this time and still unable to tolerate things by mouth/take his oral medications at home. He was evaluated today in the emergency department his labs were significant for creatinine of 1.5 GFR 57 glucose 108 lactic acid 2.5, repeat pending CBC was unremarkable chest x-ray negative for acute findings CT abdomen pelvis showed large stool burden, ED provider wishes to admit patient for intractable nausea/vomiting. Regulatory And Compliance Technician at bedside reports these episodes of vomiting typically happens after coughing/after trying to take liquids or food by mouth. While I was in exam room patient with persistent cough followed by an episode of posttussive emesis. Allergies No Known Allergies Allergy (Unverified 05/30/24 14:48) - Past Medical/Surgical History -: Cerebral palsy -: Crohn's -: CKD -: Bowel perforation with repair Psychosocial/ Personal History: Lives at home with his family - Family History Family History: Reviewed- Non-Contributory - Social History Alcohol use: No CD- Drugs: No Caffeine use: No Place of Residence: Home Review of Systems is unable to be obtained Physical Examination - Physical Exam General: Alert, In no apparent distress HEENT: Atraumatic, PERRLA, Mucous membr. moist/pink, EOMI, Sclerae nonicteric Neck: Supple, 2+ carotid pulse no bruit, No LAD, Without JVD or thyroid abnormality Respiratory: Clear to auscultation bilaterally, Normal air movement Cardiovascular: Regular rate/rhythm, Normal S1 S2 Gastrointestinal: Normal bowel sounds, No tenderness Musculoskeletal: No tenderness Integumentary: No rashes Neurological: Normal gait, Normal speech, Normal strength at 5/5 x4 extr, Normal tone, Normal affect - Studies Laboratory Data (last 24 hrs) 05/30/24 05/30/24 05/30/24 14:46 11:55 11:55 WBC Hgb Hct Plt Count PT 11.6 INR 1.06 APTT 34.3 Sodium Cancelled 141 Potassium Cancelled 3.9 BUN Cancelled 19 H Creatinine Cancelled 1.50 H Glucose Cancelled 108 H Magnesium Cancelled Total Bilirubin Cancelled 0.7 AST Cancelled 12 L ALT Cancelled 22 Alkaline Phosphatase Cancelled 47 05/30/24 11:55 WBC 8.00 Hgb 14.8 Hct 44.9 Plt Count 399 PT INR APTT Sodium Potassium BUN Creatinine Glucose Magnesium Total Bilirubin AST ALT Alkaline Phosphatase Assessment and Plan - Plan Assessment: Intractable vomiting Elevated lactate Cerebral palsy History of Crohn's History of CKD Plan: Intractable vomiting Has been going on for a week or 2 Worse last 3 days Seems to occur mostly after trying to swallow something by mouth followed by a coughing fit and posttussive emesis N.p.o. for now aside from sips of water/ice chips Continue IV fluids, PPI, as needed antiemetics Speech therapy consulted Elevated lactate Suspect this is from dehydration/vomiting No source of infection identified currently Continue IV fluids, recheck lactate Cerebral palsy At baseline Communicates verbally with precipitator History of Crohn's History of CKD Avoid NSAIDs, monitor renal function DVT PPX: Lovenox Code status: Full Discharge Plan: Home Plan to discharge in: 24 Hours - Advance Directives Does patient have a Living Will: No Does patient have a Durable POA for Healthcare: Yes - Code Status/Comfort Care Code Status Assessed: Yes (Full code) Critical Care: No Time Spent Managing Pts Care (In Minutes): 70
[2024-05-30] MEDS ORDERED: CEFTRIAXONE 1000 MG/VIAL ONE (15:13)
[2024-05-30 16:42] VITALS: BMI 22.1
[2024-05-30] MEDS ORDERED: PROMETHAZINE INJ 25 MG/ML AMP IV PRN (19:49)
[2024-05-30] MEDS ORDERED: SODIUM CHLORIDE 0.9% 10ML INJ IV PRN (19:49)
[2024-05-30] MEDS: NA CHLORIDE 0.9% 1,000 ML IV SCH (20:30)
[2024-05-30] MEDS: PANTOPRAZOLE 40 MG INJ IVP SCH (20:30)
[2024-05-30] MEDS: ONDANSETRON 4 MG/2 ML VIAL IV PRN (20:30)
[2024-05-30] MEDS: BISACODYL 10 MG RECTAL SUPP PR ONE (21:30)
[2024-05-30 23:25] VITALS: O2SAT 94
[2024-05-31 06:49] LABS: Absolute Eosinophils 0.1 K/uL (0-0.5); Absolute Lymphocytes (CBC) 0.8 K/uL (0.7-4.9); Absolute Monocytes 0.6 K/uL (0.1-1.3); Absolute Neutrophil 7.3 K/uL (1.8-8.0); Basophils % 0.5 % (0-1.3); Eosinophils % 0.6 % (0-4.4); Hematocrit 36.5 % (39.6-49.0); Hemoglobin 12.1 g/dL (13.6-17.9); Lymphocytes % 9.1 % (15.3-44.8); MCH 29.1 pg (27.0-35.0); MCHC 33.2 g/dL (32.0-36.0); MCV 87.7 fL (80-100); MPV 7.4 fL (7.6-11.3); Monocytes % 6.6 % (3.3-12.3); Neutrophils % 83.2 % (41.7-73.7); Platelets 360 thou/uL (152-406); RBC Red Blood Cell Count 4.16 M/uL (4.33-5.43); Red Cell Distribution Width 14.1 % (12.1-15.2)
[2024-05-31 07:23] LABS: Albumin 2.6 g/dL (3.4-5.0); Albumin/Globulin Ratio 0.9 (1.1-1.8); Alkaline Phosphatase 37 U/L (45-117); Anion Gap 10.8 mEq/L (5.0-15.0); BUN Blood Urea Nitrogen 19 mg/dL (7-18); Bicarbonate 25 mEq/L (21-32); Bilirubin Total 0.6 mg/dL (0.2-1.0); Globulin 2.8 g/dL (2.3-3.5); Glomerular Filtration Rate 81 ml/min (=/>90); Glucose Level 92 mg/dL (74-106); Potassium 3.8 mEq/L (3.5-5.1); Protein, Total 5.4 g/dL (6.4-8.2); Sodium Level 144 mEq/L (136-145); Thyroid Stimulating Hormone 0.478 uIU/mL (0.358-3.740)
[2024-05-31 07:25] LABS: ALT/SGPT < 14 U/L (16-61); AST/SGOT < 10 U/L (15-37)
[2024-05-31] MEDS: ENOXAPARIN 40 MG/0.4 ML SQ SCH (09:28)
--- NOTE | 2024-05-31 09:43 | P.PN ---
Date of Service: 05/31/24 Subjective: Had BM x2 overnight Feeling a bit better Still with frequent hiccups ROS: 10 point ROS as noted above, otherwise negative Physical exam GEN: Alert, oriented, NAD HEENT: Normal conjunctiva, sclera anicteric CV: Regular rate and rhythm, no edema Pulm: Nonlabored respirations on room air ABD: Soft, nontender, nondistended MSK: No joint tenderness Integumentary: No rashes Neuro: Normal speech, normal affect Vitals reviewed Assessment: Intractable vomiting Elevated lactate Cerebral palsy History of Crohn's History of CKD Plan: Intractable vomiting Has been going on for a week or 2 Worse last 3 days Seems to occur mostly after trying to swallow something by mouth followed by a coughing fit and posttussive emesis Also with significant amount hiccups Had BM x2 overnight, will try clear liquids Continue IV fluids, PPI, as needed antiemetics Speech therapy consulted Elevated lactate Suspect this is from dehydration/vomiting, improved No source of infection identified currently Continue IV fluids Cerebral palsy At baseline Communicates verbally with slug press operator History of Crohn's History of CKD Avoid NSAIDs, monitor renal function DVT PPX: Lovenox Code status: Full Discharge Plan: Home Plan to discharge in: 24 Hours Time Spent Managing Pts Care (In Minutes): 35 <Shankar Husain - Last Filed: 05/31/24 09:44> Patient seen and examined. Plan of care discussed with Shankar Husain. No vomiting since admission. Patient had multiple bowel movements. Mother reports dry heaving prior to presentation. Patient started on clear liquid diet. Speech therapy consult. Continue supportive measures with IV hydration. Constipation prophylaxis. <ezekiel sparks - Last Filed: 05/31/24 16:53>
[2024-05-31] MEDS: KCL 20 MEQ/100 mL IVPB 20 MEQ/100 ML BAG IV SCH (09:57)
[2024-05-31] MEDS ORDERED: [UNRECOGNIZED DRUG - OTHER] PO PRN (14:43)
[2024-05-31] MEDS ORDERED: GUAIFENESIN PO PRN (14:43)
[2024-05-31] MEDS ORDERED: CODEINE PHOSPHATE PO PRN (14:43)
[2024-05-31] MEDS ORDERED: GUAIFENESIN/CODEINE 5ML UCUP PO PRN (14:52)
[2024-05-31] MEDS: BACLOFEN 10 MG TAB PO SCH (21:00)
[2024-05-31 21:02] LABS: Urine Bilirubin NEGATIVE (Negative); Urine Blood Negative (Negative); Urine Clarity Clear (Clear); Urine Color Colorless (Yellow); Urine Glucose NEGATIVE (Negative); Urine Ketones 1+ (Negative); Urine Microscopic Reflex YN NO UMIC; Urine Nitrite NEGATIVE (Negative); Urine Protein NEGATIVE (Negative); Urine Urobilinogen Normal (Normal); Urine pH 5.5 (5.0-7.0)
[2024-06-01] MEDS: POLYETHYL GLY 3350 17 GM/DOSE PO SCH (07:43)
[2024-06-01] MEDS: MESALAMINE 250 MG PO SCH (07:45)
[2024-06-01 08:31] LABS: Albumin 1.3 g/dL (3.4-5.0); Albumin/Globulin Ratio 0.9 (1.1-1.8); Alkaline Phosphatase 18 U/L (45-117); Anion Gap 7.1 mEq/L (5.0-15.0); BUN Blood Urea Nitrogen 8 mg/dL (7-18); Bicarbonate 16 mEq/L (21-32); Bilirubin Total 0.4 mg/dL (0.2-1.0); Globulin 1.5 g/dL (2.3-3.5); Glomerular Filtration Rate 131 ml/min (=/>90); Glucose Level 62 mg/dL (74-106); Protein, Total 2.8 g/dL (6.4-8.2); Sodium Level 149 mEq/L (136-145)
[2024-06-01 08:32] LABS: ALT/SGPT < 14 U/L (16-61); AST/SGOT < 10 U/L (15-37)
[2024-06-01 08:34] LABS: Potassium 2.1 mEq/L (3.5-5.1)
[2024-06-01 08:49] LABS: Absolute Eosinophils 0.1 K/uL (0-0.5); Absolute Lymphocytes (CBC) 0.5 K/uL (0.7-4.9); Absolute Monocytes 0.3 K/uL (0.1-1.3); Absolute Neutrophil 3.6 K/uL (1.8-8.0); Basophils % 0.6 % (0-1.3); Eosinophils % 2.2 % (0-4.4); Hematocrit 23.6 % (39.6-49.0); Hemoglobin 7.7 g/dL (13.6-17.9); Lymphocytes % 11.2 % (15.3-44.8); MCH 28.7 pg (27.0-35.0); MCHC 32.8 g/dL (32.0-36.0); MCV 87.5 fL (80-100); MPV 8.1 fL (7.6-11.3); Monocytes % 7.6 % (3.3-12.3); Neutrophils % 78.4 % (41.7-73.7); Platelets 199 thou/uL (152-406); Red Cell Distribution Width 14.1 % (12.1-15.2)
--- NOTE | 2024-06-01 10:09 | P.PN ---
Date of Service: 06/01/24 Subjective: Doing better today Looking happy Had diffuculty swallowing, now NPO, awaiting speech eval ROS: 10 point ROS as noted above, otherwise negative Physical exam GEN: Alert, oriented, NAD HEENT: Normal conjunctiva, sclera anicteric CV: Regular rate and rhythm, no edema Pulm: Nonlabored respirations on room air ABD: Soft, nontender, nondistended MSK: No joint tenderness Integumentary: No rashes Neuro: Normal speech, normal affect Vitals reviewed Assessment: Intractable vomiting Elevated lactate Cerebral palsy History of Crohn's History of CKD Plan: Intractable vomiting Has been going on for a week or 2 Worse last 3 days Seems to occur mostly after trying to swallow something by mouth followed by a coughing fit and posttussive emesis Also with significant amount hiccups-now improved with baclofen Was doing ok with liquids but had coughing episode after miralax this morning, NPO now until speech eval Continue IV fluids, PPI, as needed antiemetics Elevated lactate Suspect this is from dehydration/vomiting, improved No source of infection identified currently IVF stopped today, will restart if needing to maintain NPO after speech eval Cerebral palsy At baseline Communicates verbally with home health administrator History of Crohn's History of CKD Avoid NSAIDs, monitor renal function DVT PPX: Lovenox Code status: Full Discharge Plan: Home Plan to discharge in: 24 Hours Time Spent Managing Pts Care (In Minutes): 35 <Shankar Husain - Last Filed: 06/01/24 10:07> Patient seen and examined with Shankar Husain. He is pleasant, tolerated liquid diet. No issues overnight. Abdomen is benign. Plan: Advance diet as tolerated Constipation prophylaxis Drop in hemoglobin likely dilutional and associated with drop in platelet and WBC counts too. Awaiting speech evaluation. <ezekiel sparks - Last Filed: 06/01/24 15:26>
[2024-06-01 10:58] LABS: Anion Gap 7.6 mEq/L (5.0-15.0); Potassium 3.6 mEq/L (3.5-5.1)
[2024-06-01] MEDS: KCL 20 MEQ/100 mL IVPB 20 MEQ/100 ML BAG IV SCH (12:00)
--- NOTE | 2024-06-01 14:19 | EKG ---
Test Date: 2024-05-30 Test Time: 12:36:30 Water Plant Pump Operator Supervisor: MEASUREMENT RESULTS: Intervals: Rate: 84 TX: 116 QRSD: 74 QT: 352 QTc: 415 [place]: P: 66 TX: 116 QRS: 79 T: 32 INTERPRETIVE STATEMENTS: Normal sinus rhythm Normal ECG No previous ECG available for comparison Electronically Signed On 06-01-24 14:15:15 CDT by Andre Gomes
[2024-06-01] MEDS: ACETAMINOPHEN 325 MG TABLET PO PRN (15:21)
[2024-06-02 07:04] LABS: Absolute Eosinophils 0.2 K/uL (0-0.5); Absolute Lymphocytes (CBC) 0.7 K/uL (0.7-4.9); Absolute Monocytes 0.5 K/uL (0.1-1.3); Absolute Neutrophil 4.6 K/uL (1.8-8.0); Basophils % 0.6 % (0-1.3); Eosinophils % 3.8 % (0-4.4); Hematocrit 36.2 % (39.6-49.0); Lymphocytes % 11.1 % (15.3-44.8); MCH 28.9 pg (27.0-35.0); MCHC 33.1 g/dL (32.0-36.0); MCV 87.5 fL (80-100); MPV 8.1 fL (7.6-11.3); Monocytes % 8.8 % (3.3-12.3); Neutrophils % 75.7 % (41.7-73.7); Nucleated Red Blood Cells % 0.1 % (0-0); Platelets 313 thou/uL (152-406); RBC Red Blood Cell Count 4.14 M/uL (4.33-5.43)
[2024-06-02 07:18] LABS: AST/SGOT 13 U/L (15-37); Albumin 2.6 g/dL (3.4-5.0); Albumin/Globulin Ratio 0.9 (1.1-1.8); Alkaline Phosphatase 41 U/L (45-117); Anion Gap 7.4 mEq/L (5.0-15.0); BUN Blood Urea Nitrogen 13 mg/dL (7-18); Bicarbonate 27 mEq/L (21-32); Bilirubin Total 0.8 mg/dL (0.2-1.0); Globulin 2.9 g/dL (2.3-3.5); Glomerular Filtration Rate 80 ml/min (=/>90); Glucose Level 89 mg/dL (74-106); Magnesium 1.7 mg/dL (1.6-2.4); Potassium 3.4 mEq/L (3.5-5.1); Protein, Total 5.5 g/dL (6.4-8.2); Sodium Level 142 mEq/L (136-145)
[2024-06-02 07:25] LABS: ALT/SGPT < 14 U/L (16-61)
[2024-06-02 08:47] VITALS: BP 117/76; TEMP 97.6
[2024-06-02] MEDS: MAGNESIUM SULFATE 1 gm IVPB 1 GM/100 ML BAG IV ONE (08:49)
[2024-06-02] MEDS: POTASSIUM 25 MEQ EFFERV TAB PO ONE (08:50)
[2024-06-02] MEDS: PNEUMOCOCCAL VACCINE 0.5 ML IMVAC ONE (08:56)
--- NOTE | 2024-06-02 12:59 | P.DS ---
Admission Date: 05/31/24 Discharge Date: 06/02/24 Disposition: ROUTINE DISCHARGE Discharge Condition: GOOD Reason for Admission: Intractable vomiting Brief History of Present Illness: 48-year-old male with history of cerebral palsy, Crohn's, CKD presents emergency department with chief complaint of nausea/vomiting. His raw stock drier tender/family bedside report that he returned from a camping about 10 days ago and was ill when he came home with cough, vomiting/diarrhea. It was initially deemed to be a viral syndrome but he was treated with antibiotics and has not had much improvement. He has been to multiple healthcare facilities at this time and still unable to tolerate things by mouth/take his oral medications at home. He was evaluated today in the emergency department his labs were significant for creatinine of 1.5 GFR 57 glucose 108 lactic acid 2.5, repeat pending CBC was unremarkable chest x-ray negative for acute findings CT abdomen pelvis showed large stool burden, ED provider wishes to admit patient for intractable juanjo sea/vomiting. Senior Design Engineer at bedside reports these episodes of vomiting typically happens after coughing/after trying to take liquids or food by mouth. While I was in exam room patient with persistent cough followed by an episode of posttussive emesis. Hospital Course: Assessment: Intractable vomiting Elevated lactate Cerebral palsy History of Crohn's History of CKD Patient was admitted to the hospital for intractable nausea/vomiting. Caregiver reports that he just got back from a camp and when he got home he was ill, crying and had developed a cough, nausea and vomiting. It got to the point where he was unable to tolerate it and opted not having vomiting for that reason he was admitted. He was treated in the hospital with IV fluids, anti emetics, PPI and had significant improvement in his symptoms. He was evaluated by speech therapy as there is some concern about possible aspiration. Speech therapy recommended mi nced and moist diet with thickened liquids, patient tolerated this well and has been able to eat and drink since yesterday. He is stable for discharge at this time and follow-up with his primary care doctor in 1 to 2 weeks. Vital Signs/Physical Exam: Temp Pulse Resp BP Pulse Ox 97.6 F 71 16 117/76 97 06/02/24 08:00 06/02/24 08:00 06/02/24 08:00 06/02/24 08:00 06/02/24 08:00 General: Alert, In no apparent distress, Oriented x3 HEENT: Atraumatic, PERRLA, EOMI Neck: Supple, JVD not distended Respiratory: Clear to auscultation bilaterally, Normal air movement Cardiovascular: Regular rate/rhythm, Normal S1 S2 Gastrointestinal: Normal bowel sounds, No tenderness Musculoskeletal: No tenderness Integumentary: No rashes Neurological: Normal speech, Normal tone, Normal affect Lymphatics: No axilla or inguinal lymphadenopathy Laboratory Data at Discharge: WBC 6.10 thou/uL (4.3-10.9) 06/02/24 06:16 Hgb 12.0 g/dL (13.6-17.9) L D 06/02/24 06:16 Hct 36.2 % (39.6-49.0) L 06/02/24 06:16 Plt Count 313 thou/uL (152-406) D 06/02/24 06:16 PT 11.6 SECONDS (9.4-12.5) 05/30/24 11:55 INR 1.06 05/30/24 11:55 APTT 34.3 SECONDS (24.3-36.9) 05/30/24 11:55 Sodium 142 mEq/L (136-145) 06/02/24 06:16 Potassium Cancelled 06/02/24 15:00 BUN 13 mg/dL (7-18) 06/02/24 06:16 Creatinine 1.13 mg/dL (0.70-1.30) 06/02/24 06:16 Glucose 89 mg/dL (74-106) 06/02/24 06:16 Magnesium 1.7 mg/dL (1.6-2.4) 06/02/24 06:16 Total Bilirubin 0.8 mg/dL (0.2-1.0) 06/02/24 06:16 AST 13 U/L (15-37) L 06/02/24 06:16 ALT < 14 U/L (16-61) L 06/02/24 06:16 Alkaline Phosphatase 41 U/L (45-117) L D 06/02/24 06:16 Home Medications: Calcium Carbonate [Calcium] 1,000 mg PO DAILY 05/30/24 Cholecalciferol (Vitamin D3) [Vitamin D3] 50 mcg DAILY 05/30/24 Mesalamine [Pentasa] 250 mg PO DAILY 05/30/24 Polyethylene Glycol 3350 [Miralax] 17 gm PO DAILY 05/30/24 Amoxicillin/Potassium Clav [Amox Tr-K Clv 600-42.9/5 Susp] 600 mg PO BID 05/31/24 Baclofen 10 mg PO BID 05/31/24 Codeine Phosphate/Guaifenesin [Codeine-Guaifen 10-100 mg/5 ml] 10 ml PO Q6H PRN 05/31/24 Ondansetron [Zofran (Odt)*] 4 mg PO TID 05/31/24 Physician Discharge Instructions: Patient was admitted to the hospital for intractable nausea/vomiting. Caregiver reports that he just got back from a camp and when he got home he was ill, crying and had developed a cough, nausea and vomiting. It got to the point where he was unable to tolerate it and opted not having vomiting for that reason he was admitted. He was treated in the hospital with IV fluids, anti emetics, PPI and had significant improvement in his symptoms. He was evaluated by speech therapy as there is some concern about possible aspiration. Speech therapy recommended minced and moist diet with thickened liquids, patient tolerated this well and has been able to eat and drink since yesterday. He is stable for discharge at this time and follow-up with his primary care doctor in 1 to 2 weeks. Diet: minced/linda Activity: Wheel Chair Followup: Boni Joyce DO [Primary Care Provider] - 1-2 Weeks Time spent managing pt's care (in minutes): 35
== END 2024-06-02 12:02 | disposition home or self-care (01) | DRG 392 ==
LOC: ER 10:38 → 2ND 14:49 → OBSVTOIN 05-31 16:17
PROVIDERS: ADMIT Internal Medicine; ATTEND Hospitalist
DX: R11.2 Nausea with vomiting, unspecified (principal); K50.90 Crohn's disease, unspecified, without complications; E87.20 Acidosis, unspecified; E86.0 Dehydration; K59.00 Constipation, unspecified; N18.9 Chronic kidney disease, unspecified; G80.9 Cerebral palsy, unspecified
CPT/HCPCS: 36415; 71045; 74177; 80048; 80053; 81003; 83605; 83735; 84439; 84443; 85025; 85610; 85730; 87040; 92610; 93005; 96361; 96374; 96375; 99285; C9113; G0378; J0696; J1650; J2405; J3475; J3480; J7030; Q9967

== ENCOUNTER 2025-02-28 16:16 | Emergency (ER) | payer OTHER ==
[2025-02-28 17:06] LABS: Sqamous Epithelial None Seen /HPF (None Seen); Urine Bacteria None Seen /HPF (<20); Urine Bilirubin NEGATIVE (Negative); Urine Blood Negative (Negative); Urine Clarity Clear (Clear); Urine Color Light-Yellow (Yellow); Urine Culture Reflex Order NOT NEEDED; Urine Glucose NEGATIVE (Negative); Urine Ketones NEGATIVE (Negative); Urine Micro Reflex YN NO BILL MICROSCOPIC; Urine Nitrite NEGATIVE (Negative); Urine Protein NEGATIVE (Negative); Urine RBC <5 /HPF (None Seen); Urine Urobilinogen Normal (Normal); Urine WBC <5 /HPF (<5); Urine WBC Clump Rare /HPF (None Seen); Urine pH 5.5 (5.0-7.0)
--- NOTE | 2025-02-28 17:27 | RAD REPORT ---
EXAMINATION: Stone Protocol CLINICAL INDICATION: Male, 49 years old.urinary retention TECHNIQUE: CT abdomen and pelvis was performed using a stone protocol, without IV contrast, as per de partment protocol. Axial, sagittal and coronal reconstructions were obtained. One or more of the following dose reduction techniques were used: Automated exposure control, adjustment of the mA and/o r kV according to the patient size, and/or iterative reconstruction. Unless otherwise specified, incidental findings do not require dedicated imaging follow-up. [id number]. IV CONTRAST: Not administered. COMPARISON: 05/30/2024 FINDINGS: The lack of intravenous contrast limits the sensitivity of this exam for evaluation of solid visceral organs, vascular structures, and retroperitoneum. LOWER CHEST: No acute process identified.No significant pericardial effusion. Moderate circumferentia l thickening of the distal esophagus which could reflect esophagitis. Endoscopy could better evaluate. UPPER GI: No significant abnormality. LIVER: No significant focal abnormality. GALLBLADDER/BILE DUCTS: No biliary ductal dilatation.? PANCREAS: No mass, ductal dilation, or rubi-pancreatic fluid. SPLEEN: Unremarkable. ADRENALS: No adrenal masses. KIDNEYS AND URETERS: No hydronephrosis.Low density and/or too small to characterize renal lesions whi ch are statistically benign.No renal calculi. ABDOMINAL AORTA AND OTHER VESSELS: Normal caliber aorta and IVC. PERITONEUM: No abnormal free fluid. No free air. LYMPH NODES: No pathologic lymphadenopathy. ABDOMINAL WALL: Unremarkable SMALL BOWEL/COLON: Partial small bowel resection. Patulous small bowel centrally which is unchanged. Moderate volume of stool in the distal sigmoid and rectum.Nonvisualized appendix but no secondary signs of acute appendicitis. URINARY BLADDER: Circumferential thickening which may be secondary to chronic bladder outlet obstruct ion. REPRODUCTIVE ORGANS: Mild prostatomegaly. MUSCULOSKELETAL: No acute or suspicious osseous abnormality. ADDITIONAL FINDINGS: None. IMPRESSION: No acute findings within the abdomen or pelvis. Moderate rectal stool suggesting constipation. Circumferential bladder wall thickening. Mild prostatomegaly. Bladder wall thickening may be from chr onic bilateral obstruction. No renal or ureteral calculi..
--- NOTE | 2025-02-28 17:38 | ER ---
Nurse's Notes [facility] Name: Fabiano Omalley Age: 49 yrs Sex: Male : 1975 Arrival Date: 02/28/2025 Time: 16:16 Bed 20 Private MD: Boni Joyce Diagnosis: Acute urinary retention Presentation: 02/28 16:31 Coronavirus screen: At this time, the client does not indicate any symptoms associated ld1 with coronavirus-19. Ebola Screen: No symptoms or risks identified at this time. Risk Assessment: Do you want to hurt yourself or someone else? Patient reports no desire to harm self or others. Onset of symptoms was February 28, 2025. 16:31 Method Of Arrival: Wheelchair ld1 16:31 Acuity: SEAN 3 ld1 16:36 Chief complaint: Patient states: Urinary retention since midnight. Denies pain. Initial ld1 Sepsis Screen: Does the patient meet any 2 criteria? No. Patient's initial sepsis screen is negative. Does the patient have a suspected source of infection? No. Patient's initial sepsis screen is negative. Triage Assessment: 16:31 General: Appears in no apparent distress. comfortable, Behavior is calm, cooperative, ld1 appropriate for age. Pain: Denies pain. EENT: No signs and/or symptoms were reported regarding the EENT system. Neuro: Level of Consciousness is awake, alert, obeys commands, Oriented to person, place, time, situation. Cardiovascular: Capillary refill < 3 seconds Patient's skin is warm and dry. Respiratory: Airway is patent Respiratory effort is even, unlabored. GI: Abdomen is flat, non-distended. : Parent/caregiver report the patient having inability to void. Derm: No signs and/or symptoms reported regarding the dermatologic system. Musculoskeletal: No signs and/or symptoms reported regarding the musculoskeletal system. Historical: - Allergies: 16:30 No Known Allergies; ld1 - PMHx: 16:30 Cerebral Palsy; Chrones; kidney disease; ld1 - PSHx: 16:30 intestinal Surgery; ld1 - Immunization history:: Adult Immunizations up to date. - Infectious Disease History:: Denies. - Social history:: Smoking status: Patient denies any tobacco usage or history of. Screenin:32 [facility] ED Fall Risk Assessment (Adult) History of falling in the last 3 months, ld1 including since admission No falls in past 3 months (0 pts) Confusion or Disorientation No (0 pts) Intoxicated or Sedated No (0 pts) Impaired Gait Yes (1 pt) Mobility Assist Device Used Yes (1 pt) Altered Elimination Yes (1 pt) Score/Fall Risk Level 3 or more points = High Risk Oriented to surroundings, Maintained a safe environment, Hourly rounding (assess needs \T\ fall precautionary measures) done. Abuse screen: Denies threats or abuse. Denies injuries from another. Nutritional screening: No deficits noted. Tuberculosis screening: No symptoms or risk factors identified. Assessment: 16:32 Reassessment: See triage assessment. ld1 17:00 Reassessment: Bladder scanner completed -318 mls. ld1 17:47 Reassessment: Patient appears in no apparent distress at this time. No changes from ld1 previously documented assessment. Patient and/or family updated on plan of care and expected duration. Pain level reassessed. Patient is alert, oriented x 3, equal unlabored respirations, skin warm/dry/pink. Vital Signs: 16:33 Pulse 84; Resp 18; Pulse Ox 97% on R/A; Pain 0/10; ld1 16:36 BP 114 / 85; Pulse 85; Resp 16; Temp 98.1(O); Pulse Ox 97% on R/A; Weight 54.43 kg; ld1 Pain 0/10; 17:47 BP 117 / 67; Pulse 81; Resp 18; Pulse Ox 100% on R/A; ld1 16:33 Pain Scale: Adult ld1 16:36 Pain Scale: Adult ld1 ED Course: 16:25 Patient arrived in ED. am2 16:25 Boni Joyce DO is Private Physician. am2 16:26 [facility]agro Casillas [facility]C [facility]. sb4 16:26 Rajeev Hutson MD is Attending Physician. sb4 16:31 Triage completed. ld1 16:31 Arm band placed on right wrist. ld1 16:32 Patient has correct armband on for positive identification. Placed in gown. Bed in low ld1 position. Call light in reach. Side rails up X2. Pulse ox on. NIBP on. Door closed. Noise minimized. Warm blanket given. 16:32 No provider procedures requiring assistance completed. ld1 16:35 Mayra Davalos, RN is Primary Nurse. ld1 17:00 Straight cath inserted, using sterile technique, 14 Fr. Specimen obtained. Returned ld1 clear yellow urine. Patient tolerated well. 17:05 UAM Sent. ld1 17:15 CT Stone Protocol In Process Unspecified. EDMS 17:38 Boni Joyce DO is Referral Physician. sb4 17:47 Patient did not have IV access during this emergency room visit. ld1 Administered Medications: No medications were administered Medication: 16:32 VIS not applicable for this client. ld1 Output: 17:01 Urine: 800ml (Straight Cath); Total: 800ml. ld1 Outcome: 17:38 Discharge ordered by MD. sb4 17:47 Discharged to home ambulatory, ld1 17:47 Condition: stable 17:47 Discharge instructions given to patient, family, Instructed on discharge instructions, follow up and referral plans. Demonstrated understanding of instructions, follow-up care, 17:47 Patient left the ED. ld1 Signatures: Dispatcher [employer] EDAZ Vicki Costa 2 Mayra Davalos, RN RN ld1 Milagro Casillas PA-C PA-C sb4
--- NOTE | 2025-02-28 17:38 | EDPHYS ---
Physician Documentation [facility] Name: Fabiano Omalley Age: 49 yrs Sex: Male : 1975 Arrival Date: 02/28/2025 Time: 16:16 Bed 20 Private MD: Boni Joyce ED Physician Rajeev Hutson HPI: 02/28 16:37 This 49 yrs old Male presents to ER via Wheelchair with complaints of Urinary sb4 Retention. 16:37 Patient with history of cerebral palsy and CKD presents with acute urinary retention. sb4 Caregiver states that he has not urinated in over 16 hours. He is not complaining of any pain. Denies any history of urinary retention or issues urinating. No history of kidney stones. Had blood work done 10 days ago that was unremarkable. Historical: - Allergies: 16:30 No Known Allergies; ld1 - PMHx: 16:30 Cerebral Palsy; Chrones; kidney disease; ld1 - PSHx: 16:30 intestinal Surgery; ld1 - Immunization history:: Adult Immunizations up to date. - Infectious Disease History:: Denies. - Social history:: Smoking status: Patient denies any tobacco usage or history of. ROS: 16:37 Constitutional: Negative for fever, chills, and weight loss, sb4 16:37 : Positive for difficulty urinating, 16:37 All other systems are negative, Exam: 16:37 Head/Face: Normocephalic, atraumatic. Eyes: Extra-ocular motions intact. Periorbital sb4 areas with no swelling, redness, or edema. ENT: Mucous membranes moist. Cardiovascular: Regular rate and rhythm with a normal S1 and S2. Abdomen/GI: Soft, non-tender, no distension. Skin: Warm, dry with normal turgor. Normal color with no rashes, no lesions, and no evidence of cellulitis. 16:37 Constitutional: The patient appears in no acute distress, alert, awake, Vital Signs: 16:33 Pulse 84; Resp 18; Pulse Ox 97% on R/A; Pain 0/10; ld1 16:36 BP 114 / 85; Pulse 85; Resp 16; Temp 98.1(O); Pulse Ox 97% on R/A; Weight 54.43 kg; ld1 Pain 0/10; 17:47 BP 117 / 67; Pulse 81; Resp 18; Pulse Ox 100% on R/A; ld1 16:33 Pain Scale: Adult ld1 16:36 Pain Scale: Adult ld1 MDM: 16:27 Medical Screening Exam initiated sb4 17:39 ED course: Patient was straight cathed and had 800 mL out. Urine is negative for sb4 infection or blood. CT did not show any abnormality. I Recommended indwelling Kearns catheter for discharge because I have not determined a cause for his urinary retention. However, I do suspect that his neurogenic given his history of cerebral palsy and he has had increases in his arm spasms recently. Patient does not want a indwelling Kearns catheter at this time. Caregiver states that she will bring him back if he has not had any urine output in 12 hours.. 17:41 Data reviewed: vital signs, nurses notes, lab test result(s), radiologic studies, and sb4 as a result, I will discharge patient. Historians other than the Patient: Caregiver- aunt. 02/28 16:34 Order name: UAM; Complete Time: 17:06 sb4 02/28 16:36 Order name: CT Stone Protocol; Complete Time: 17:28 sb4 02/28 16:34 Order name: Bladder Scanner; Complete Time: 17:05 sb4 Administered Medications: No medications were administered Disposition: 18:06 Co-signature as Attending Physician, Rajeev Hutson MD I reviewed the patient's care rn provided by the Advanced Practice Provider and agree with the diagnosis and treatment plan. Disposition Summary: 02/28/25 17:38 Discharge Ordered Notes: Location: Home sb4 Problem: new sb4 Symptoms: have improved sb4 Condition: Stable sb4 Diagnosis - Acute urinary retention sb4 Followup: sb4 - With: Boni Joyce DO - When: 1 - 2 days - Reason: Recheck today's complaints, Re-evaluation by your physician Discharge Instructions: - Discharge Summary Sheet sb4 - Acute Urinary Retention, Male, [id number] sb4 Forms: - Patient Portal Instructions sb4 - Leadership Thank You Letter sb4 Signatures: Dispatcher [employer] EDRajeev Jennings MD MD rn Sims, Lauren, RN RN ld1 Milagro Casillas PA-C PA-C sb4 Corrections: (The following items were deleted from the chart) 16:35 16:35 Urinalysis W/Microscopic+U.LAB.BRZ ordered. EDMS EDMS 16:38 16:38 Stone Protocol+CT.RAD.BRZ ordered. EDMS EDMS
[2025-02-28 17:54] VITALS: TEMP 98.1
[2025-02-28 17:55] VITALS: BP 117/67; O2SAT 100
== END 2025-02-28 17:47 | disposition home or self-care (01) ==
LOC: ER 16:16
DX: R33.9 Retention of urine, unspecified (principal); N18.9 Chronic kidney disease, unspecified; G80.9 Cerebral palsy, unspecified
CPT/HCPCS: 74176; 76377; 81001

== ENCOUNTER 2025-04-13 13:51 | Emergency (ER) | payer OTHER ==
[2025-04-13 14:42] LABS: Absolute Eosinophils 0.1 K/uL (0-0.5); Absolute Lymphocytes (CBC) 0.5 K/uL (0.7-4.9); Absolute Monocytes 0.3 K/uL (0.1-1.3); Absolute Neutrophil 3.8 K/uL (1.8-8.0); Basophils % 0.4 % (0-1.3); Eosinophils % 1.5 % (0-4.4); Hematocrit 39.3 % (39.6-49.0); Hemoglobin 13.2 g/dL (13.6-17.9); Lymphocytes % 10.1 % (15.3-44.8); MCH 29.1 pg (27.0-35.0); MCHC 33.5 g/dL (32.0-36.0); MCV 86.9 fL (80-100); Monocytes % 7.2 % (3.3-12.3); Neutrophils % 80.8 % (41.7-73.7); Nucleated Red Blood Cells % 0.2 % (0-0); Platelets 188 thou/uL (152-406); RBC Red Blood Cell Count 4.53 M/uL (4.33-5.43); Red Cell Distribution Width 13.7 % (12.1-15.2)
[2025-04-13 15:06] LABS: Albumin 3.3 g/dL (3.4-5.0); Anion Gap 7.7 mEq/L (5.0-15.0); Bilirubin Total 0.8 mg/dL (0.2-1.0); Globulin 3.4 g/dL (2.3-3.5); Potassium 3.7 mEq/L (3.5-5.1); Protein, Total 6.7 g/dL (6.4-8.2)
--- NOTE | 2025-04-13 15:23 | RAD REPORT ---
EXAMINATION: Abdomen Pelvis W Contrast CLINICAL INDICATION: Male, 49 years old.Abd pain;Constipation TECHNIQUE: CT abdomen and pelvis was performed, after the administration of IV contrast, as [facility]. Axial, sagittal and coronal reconstructions were obtained. One or more of the following dose reduction techniques were used: Automated exposure control, adjustment of the mA and/o r kV according to patient size, and/or iterative reconstruction. Unless otherwise specified, incidental findings do not require dedicated imaging follow-up. [id number]. COMPARISON: 02/28/2025 FINDINGS: Limited by motion. LOWER CHEST: No acute process identified. Elevated right hemidiaphragm. Moderately thickened distal e sophagus. UPPER GI: No significant abnormality. LIVER: No significant focal abnormality. GALLBLADDER/BILE DUCTS: No biliary ductal dilatation.? PANCREAS: No mass, ductal dilation, or rubi-pancreatic fluid. SPLEEN: Unremarkable. ADRENALS: No adrenal masses. KIDNEYS AND URETERS: No hydronephrosis.Low density and/or too small to characterize renal lesions whi ch are statistically benign.No renal calculi. ABDOMINAL AORTA AND OTHER VESSELS: Normal caliber aorta and IVC. PERITONEUM: No abnormal free fluid. No free air. LYMPH NODES: No pathologic lymphadenopathy. ABDOMINAL WALL: Unremarkable SMALL BOWEL/COLON: Moderate rectal stool. There is also moderate colonic stool burden. No bowel obstr uction. Partial bowel resection. URINARY BLADDER: Distended. REPRODUCTIVE ORGANS: No pathologic process. MUSCULOSKELETAL: No acute osseous abnormality. Motion artifact. ADDITIONAL FINDINGS: None. IMPRESSION: Moderate colonic and rectal stool burden could indicate constipation. No bowel obstruction is identif ied. Dilated bladder. Suggest correlation for urinary retention. No hydronephrosis.
[2025-04-13] MEDS ORDERED: FLEET ENEMA ADULT PR ONE (15:48)
[2025-04-13] MEDS ORDERED: PROMETHAZINE INJ 25 MG/ML AMP IM ONE (15:58)
[2025-04-13] MEDS ORDERED: MORPHINE 4 MG/ML SYR ONE (15:58)
--- NOTE | 2025-04-13 17:07 | EDPHYS ---
Physician Documentation [facility] Name: Fabiano Omalley Age: 49 yrs Sex: Male : 1975 Arrival Date: 04/13/2025 Time: 13:51 Bed 5 Private MD: ED Physician Clotilde Butler HPI: 04/13 14:18 This 49 yrs old Male presents to ER via EMS with complaints of Constipation sp3 and abdominal pain. 14:18 49-year-old male with history of cerebral palsy, Crohn's disease, kidney disease now sp3 presents with chief complaint abdominal pain and constipation. Patient has had 2 bowel resections in the past. He denies any vomiting or diarrhea, fever, chest pain, back pain, headache, decreased urine output, or any other signs or symptoms on ROS at this time. ROS, history and physical limited secondary to cerebral palsy. However patient does do a good job communicating and family is in the room as well.. Historical: - Allergies: 14:01 No Known Allergies; ss - PMHx: 14:01 Cerebral Palsy; Chrones; kidney disease; ss - PSHx: 14:01 intestinal Surgery; ss - Immunization history:: Adult Immunizations up to date. - Infectious Disease History:: Denies. - Social history:: Smoking status: Patient denies any tobacco usage or history of. ROS: 14:20 Constitutional: Negative for fever, chills, and weight loss, Eyes: Negative for injury, sp3 pain, redness, and discharge, ENT: Negative for injury, pain, and discharge, Neck: Negative for injury, pain, and swelling, Cardiovascular: Negative for chest pain, palpitations, and edema, Respiratory: Negative for shortness of breath, cough, wheezing, and pleuritic chest pain, Back: Negative for injury and pain, MS/Extremity: Negative for injury and deformity, Skin: Negative for injury, rash, and discoloration, Neuro: Negative for headache, weakness, numbness, tingling, and seizure, Psych: Negative for depression, anxiety, suicide ideation, homicidal ideation, and hallucinations, Allergy/Immunology: Negative for hives, rash, and allergies, Endocrine: Negative for neck swelling, polydipsia, polyuria, polyphagia, and marked weight changes, 14:20 All other systems are negative, Exam: 14:21 Constitutional: This is a well developed, well nourished patient who is awake, alert, sp3 and in no acute distress. Head/Face: Normocephalic, atraumatic. Neck: Trachea midline, no thyromegaly or masses palpated, and no cervical lymphadenopathy. Supple, full range of motion without nuchal rigidity, or vertebral point tenderness. No Meningismus. Chest/axilla: Normal chest wall appearance and motion. Nontender with no deformity. No lesions are appreciated. Cardiovascular: Regular rate and rhythm with a normal S1 and S2. No gallops, murmurs, or rubs. Normal PMI, no JVD. No pulse deficits. Respiratory: Lungs have equal breath sounds bilaterally, clear to auscultation and percussion. No rales, rhonchi or wheezes noted. No increased work of breathing, no retractions or nasal flaring. Skin: Warm, dry with normal turgor. Normal color with no rashes, no lesions, and no evidence of cellulitis. 14:21 Abdomen/GI: Abdomen soft mildly tender diffusely. No peritoneal signs, rebound or guarding. Vital signs are normal., Vital Signs: 13:59 Pulse 68; Resp 17; Pulse Ox 98% on R/A; Pain 10/10; ss 14:03 BP 99 / 76; Temp 98.6(A); ss 18:28 BP 100 / 74; Pulse 74; Resp 18; Pulse Ox 100% on R/A; mb9 13:59 Pain Scale: Adult ss MDM: 14:00 Medical Screening Exam initiated sp3 14:23 Data reviewed: vital signs, nurses notes, old medical records, lab test result(s), sp3 radiologic studies. ED course: 49-year-old male with PMH above now with constipation and abdominal pain in the setting of prior bowel resections and Crohn's disease. Differential diagnosis includes Crohn's flare, constipation, small bowel obstruction, ileus, other inflammatory process colitis, among others. I am not highly suspicious of sepsis, shock, vascular pathology, pathology, or any other critical process. Workup will include CT scan of the abdomen pelvis, general labs. Disposition pending workup and patient course.. 17:05 ED course: Patient was able to have a bowel movement after Fleet enema. We will safely sp3 discharge him home at this time. CT demonstrates no obstruction.. 04/13 14:08 Order name: CBC with Diff; Complete Time: 15:06 sp3 04/13 14:08 Order name: CMP; Complete Time: 15:06 sp3 04/13 14:08 Order name: Lipase; Complete Time: 15:06 sp3 04/13 14:08 Order name: CT Abd/Pelvis - IV Contrast Only; Complete Time: 15:37 sp3 04/13 14:08 Order name: IV Saline Lock; Complete Time: 14:39 sp3 04/13 14:08 Order name: Labs collected and sent; Complete Time: 14:39 sp3 Administered Medications: 15:50 Drug: Fleet Enema NM 133 ml NM once Route: NM; ld1 17:13 Follow up: Response: No adverse reaction mb9 16:01 Drug: morphine IVP or IV 4 mg IVP once over 4 mins Route: IVP; Infused Over: 4 mins; ld1 Site: right forearm; 17:13 Follow up: Response: No adverse reaction mb9 16:02 Drug: Promethazine IVP 12.5 mg IVP once Route: IVP; Site: right forearm; ld1 17:13 Follow up: Response: No adverse reaction mb9 Disposition Summary: 04/13/25 17:06 Discharge Ordered Notes: Location: Home sp3 Condition: Stable sp3 Diagnosis - Constipation sp3 Followup: sp3 - With: Private Physician - When: Upon discharge from the Emergency Department - Reason: Continuance of care Discharge Instructions: - Discharge Summary Sheet sp3 - Constipation, Adult sp3 Forms: - Medication Reconciliation Form sp3 - Antibiotic Education sp3 - Prescription Opioid Use sp3 - Patient Portal Instructions sp3 - Leadership Thank You Letter sp3 Signatures: Dispatcher [employer] Amy Joseph RN RN ss Mayra Davalos RN RN ld1 Clotilde Butler MD MD sp3 Farrah Hernandez RN RN mb9
--- NOTE | 2025-04-13 17:07 | ER ---
Nurse's Notes [facility] Name: Fabiano Omalley Age: 49 yrs Sex: Male : 1975 Arrival Date: 04/13/2025 Time: 13:51 Bed 5 Private MD: Diagnosis: Constipation Presentation: 04/13 13:59 Chief complaint: Patient states: constipation x 2 days. C/o abd pain. Coronavirus ss screen: Client denies travel out of the [place] in the last 14 days. Ebola Screen: Patient denies exposure to infectious person. Patient denies travel to an Ebola-affected area in the 21 days before illness onset. Initial Sepsis Screen: Does the patient meet any 2 criteria? No. Patient's initial sepsis screen is negative. Does the patient have a suspected source of infection? No. Patient's initial sepsis screen is negative. Risk Assessment: Do you want to hurt yourself or someone else? Patient reports no desire to harm self or others. Onset of symptoms was April 11, 2025. 13:59 Method Of Arrival: EMS: [facility] 13:59 Acuity: SEAN 3 ss Historical: - Allergies: 14:01 No Known Allergies; ss - PMHx: 14:01 Cerebral Palsy; Chrones; kidney disease; ss - PSHx: 14:01 intestinal Surgery; ss - Immunization history:: Adult Immunizations up to date. - Infectious Disease History:: Denies. - Social history:: Smoking status: Patient denies any tobacco usage or history of. Screenin:12 [facility] ED Fall Risk Assessment (Adult) History of falling in the last 3 months, mb9 including since admission Yes- fall prone (multiple falls) (3 pts) Confusion or Disorientation No (0 pts) Intoxicated or Sedated No (0 pts) Impaired Gait Yes (1 pt) Mobility Assist Device Used Yes (1 pt) Altered Elimination Yes (1 pt) Score/Fall Risk Level 3 or more points = High Risk Oriented to surroundings, Maintained a safe environment, Educated pt \T\ family on fall prevention, incl call for assistance when getting out of bed. Abuse screen: Denies threats or abuse. Nutritional screening: No deficits noted. Tuberculosis screening: No symptoms or risk factors identified. Assessment: 14:35 General: Appears in no apparent distress. Behavior is calm, cooperative. Pain: ss Complains of pain in abdomen Pain currently is 10 out of 10 on a pain scale. Quality of pain is described as sharp, Pain began this afternoon while trying to have a BM Is continuous. Neuro: Level of Consciousness is awake, alert, obeys commands, Oriented to person, place, time, situation. Neuro: HX of cerbal palsy, spasticity note to all limbs. Respiratory: Airway is patent Respiratory effort is even, unlabored, Respiratory pattern is regular, symmetrical. Derm: Skin is pink, warm \T\ dry. normal. 14:45 GI: Bowel sounds present X 4 quads. Abd is soft and non tender X 4 quads. mb9 15:19 Reassessment: No changes from previously documented assessment. Patient and/or family mb9 updated on plan of care and expected duration. Pain level reassessed. Patient is alert, oriented x 3, equal unlabored respirations, skin warm/dry/pink. 16:30 Reassessment: Patient appears in no apparent distress at this time. No changes from mb9 previously documented assessment. Patient and/or family updated on plan of care and expected duration. Pain level reassessed. 17:00 Reassessment: D/C pending ambulance ride home. mb9 Vital Signs: 13:59 Pulse 68; Resp 17; Pulse Ox 98% on R/A; Pain 10/10; ss 14:03 BP 99 / 76; Temp 98.6(A); ss 18:28 BP 100 / 74; Pulse 74; Resp 18; Pulse Ox 100% on R/A; mb9 13:59 Pain Scale: Adult ss ED Course: 13:59 Patient arrived in ED. ss 13:59 Clotilde Butler MD is Attending Physician. sp3 14:01 Triage completed. ss 14:01 Arm band placed on right wrist. ss 14:35 Inserted saline lock: 22 gauge in right wrist, using aseptic technique. Blood ss collected. Flushed with 10 mL NS. 15:00 Door closed. Noise minimized. Warm blanket given. Pillow given. mb9 15:00 Placed in gown. Bed in low position. Call light in reach. Side rails up X 1. Client mb9 placed on continuous cardiac and pulse oximetry monitoring. NIBP monitoring applied. 15:14 CT Abd/Pelvis - IV Contrast Only In Process Unspecified. EDMS 17:11 Hernandez, Deidre, RN is Primary Nurse. mb9 17:12 Cleaned of incontinence. Linen changed. mb9 17:12 No provider procedures requiring assistance completed. IV discontinued, intact, mb9 bleeding controlled, No redness/swelling at site. Pressure dressing applied. Administered Medications: 15:50 Drug: Fleet Enema ME 133 ml ME once Route: ME; ld1 17:13 Follow up: Response: No adverse reaction mb9 16:01 Drug: morphine IVP or IV 4 mg IVP once over 4 mins Route: IVP; Infused Over: 4 mins; ld1 Site: right forearm; 17:13 Follow up: Response: No adverse reaction mb9 16:02 Drug: Promethazine IVP 12.5 mg IVP once Route: IVP; Site: right forearm; ld1 17:13 Follow up: Response: No adverse reaction mb9 Medication: 14:35 VIS not applicable for this client. Outcome: 17:06 Discharge ordered by . dez 18:28 Discharged to home via ambulance, mb9 18:28 Condition: stable 18:28 Discharge instructions given to patient, family, Instructed on discharge instructions, follow up and referral plans. 18:46 Patient left the ED. mb9 Signatures: Dispatcher [employer] EDMS Amy Kapadia RN RN Mayra Davalos RN RN ld1 Clotilde Butler MD MD sp3 Wilkerson, Mary Beth, RN RN mb9
[2025-04-13 19:04] VITALS: TEMP 98.6
[2025-04-13 19:10] VITALS: BP 100/74; O2SAT 100
== END 2025-04-13 18:46 | disposition home or self-care (01) ==
LOC: ER 13:51
DX: K59.00 Constipation, unspecified (principal); G80.9 Cerebral palsy, unspecified
CPT/HCPCS: 85025; 36415; 83690; 80053; 74177; 96375; 96374; 99285; Q9967; J2550